=== PATIENT | female | born 1975 | race African-American/Black ===

== ENCOUNTER 2017-03-13 23:25 | Emergency (ER) | payer MEDICAID, MEDICARE ==
--- NOTE | 2017-03-13 23:56 | RAD ---
EXAM: FOUR VIEWS OF THE LEFT KNEE 03/13/17 HISTORY: Pain. COMPARISON: None. FINDINGS: Joint spaces are preserved. No fracture or malalignment. No significant joint effusion. IMPRESSION: Unremarkable four views left knee. POS: [facility]
[2017-03-14] MEDS ORDERED: Ketorolac Tromethamine 30 MG/ML VIAL ONE (00:41)
[2017-03-14] MEDS ORDERED: Ibuprofen 800 MG TAB ONE (00:54)
== END 2017-03-14 01:12 | disposition home or self-care (01) ==
LOC: ERS 23:25
DX: J06.9 Acute upper respiratory infection, unspecified (principal); M25.562 Pain in left knee; E11.9 Type 2 diabetes mellitus without complications; I10 Essential (primary) hypertension; F31.9 Bipolar disorder, unspecified; Z79.899 Other long term (current) drug therapy; Z79.84 Long term (current) use of oral hypoglycemic drugs
CPT/HCPCS: J1885

== ENCOUNTER 2017-10-23 11:56 | Emergency (ER) | payer MEDICARE ==
[2017-10-23] MEDS ORDERED: Metoclopramide HCl 10 MG/2 ML VIAL ONE (12:36)
[2017-10-23] MEDS ORDERED: diphenhydrAMINE 50 MG/ML VIAL ONE (12:36)
[2017-10-23 12:39] LABS: #Eosinphils 0.2 thou/uL (0.0-0.7); #Lymphocytes 2.3 thou/uL (1.20-3.40); #Monocytes 0.2 thou/uL (0.11-0.59); #Neutrophils 2.5 thou/uL (1.40-6.50); %Basophils 0.6 % (0.0-1.0); %Eosinophils 3.9 % (0.0-10.0); %Lymphocytes 43.4 % (21.0-51.0); %Monocytes 4.2 % (0.0-10.0); Hemoglobin 13.6 g/dL (12.0-16.0); Mean Corpuscular HGB CONC 32.9 g/dL (32.0-36.0); Mean Corpuscular Hemoglobin 24.3 pg (27.0-31.0); Mean Corpuscular Volume 73.6 fL (78.0-98.0); Mean Platelet Volume 9.3 fL (7.4-10.4); Platelet Count 258 thou/uL (130-400); RBC Distribution Width 13.1 % (11.5-14.5); White Blood Cell (WBC) Count 5.2 thou/uL (4.8-10.8)
[2017-10-23 12:46] LABS: BHCG - Serum Negative (NEGATIVE); Pregs Control Background? CLEAR/WHITE (CLR/WHITE); Pregs Control Bar Appear? YES (CONTROL BAR)
[2017-10-23 12:55] LABS: Anion Gap 11 mmol/L (10-20); BUN (Urea Nitrogen) 16 mg/dL (7.0-18.7); Calc. Creatinine Clearance 0 mL/min (70-130); Carbon Dioxide 23 mmol/L (22-29); Chloride 105 mmol/L (98-107); Potassium 4.2 mmol/L (3.5-5.1); Sodium 135 mmol/L (136-145)
[2017-10-23 12:56] LABS: ALT (SGPT) 22 U/L (8-55); AST (SGOT) 30 U/L (5-34); Albumin 4.1 g/dL (3.5-5.0); Alkaline Phosphatase 88 U/L (40-150); Bilirubin, Total 0.9 mg/dL (0.2-1.2); Calcium 9.2 mg/dL (7.8-10.44); Estimated GFR-MDRD Greater than 90; Globulin 4.5 g/dL (2.4-3.5); Glucose 185 mg/dL (70-105); Protein, Total 8.6 g/dL (6.0-8.3)
[2017-10-23] MEDS ORDERED: Ketorolac Tromethamine 30 MG/ML VIAL ONE (13:04)
[2017-10-23 13:18] LABS: Hypochromia SLIGHT = 6-15 cells (100X) (0-5/hpf); MDiff Complete? YES; Microcytosis SLIGHT = 6-15 cells (100X) (0-5/hpf); PLT Morphology Comment Appears Adequate; Polychromasia SLIGHT = 2-3 cells (100X) (0-2/hpf)
== END 2017-10-23 14:05 | disposition home or self-care (01) ==
LOC: ERS 11:56
DX: R51 Headache (principal); E11.9 Type 2 diabetes mellitus without complications; I10 Essential (primary) hypertension; F31.9 Bipolar disorder, unspecified
CPT/HCPCS: 80053; 84703; 85025; 96365; 96375; J1200; J1885; J2765

== ENCOUNTER 2017-12-30 18:12 | Emergency (ER) | payer MEDICARE | END 2017-12-30 18:43 | disposition home or self-care (01) | LOC: ERS 18:12 | DX: J01.90 Acute sinusitis, unspecified (principal); E11.9 Type 2 diabetes mellitus without complications; I10 Essential (primary) hypertension; F31.9 Bipolar disorder, unspecified | CPT/HCPCS: 99283 ==

== ENCOUNTER 2018-03-25 07:09 | Observation (INO) | payer MEDICARE ==
--- NOTE | 2018-03-25 08:13 | RAD ---
CHEST 1 VIEW: HISTORY: A 43-year-old female with a history of chest pain with frontal headache and mid sternal chest pain go ing to left shoulder since last night. FINDINGS: Somewhat less than optimal inspiratory effort. Heart size is within normal limits. No confluent pne umonia, overt edema, or pleural effusion. IMPRESSION: Somewhat less than optimal inspiratory effort. No acute intrathoracic disease. No evidence for pneu monia or acute edema. POS: [facility]
[2018-03-25 08:14] LABS: Hemoglobin 12.9 g/dL (12.0-16.0); Mean Corpuscular HGB CONC 31.6 g/dL (32.0-36.0); Mean Corpuscular Hemoglobin 23.5 pg (27.0-31.0); Mean Corpuscular Volume 74.4 fL (78.0-98.0); Mean Platelet Volume 8.6 fL (7.4-10.4); Platelet Count 258 thou/uL (130-400); RBC Distribution Width 12.5 % (11.5-14.5); Red Blood Cell (RBC) Count 5.49 mill/uL (4.20-5.40)
[2018-03-25 08:36] LABS: ALT (SGPT) 23 U/L (8-55); AST (SGOT) 25 U/L (5-34); Albumin 3.9 g/dL (3.5-5.0); Alkaline Phosphatase 84 U/L (40-150); Anion Gap 11 mmol/L (10-20); BUN (Urea Nitrogen) 12 mg/dL (7.0-18.7); Bilirubin, Total 0.7 mg/dL (0.2-1.2); CK (CPK) 153 U/L (29-168); Calc. Creatinine Clearance 0 mL/min (70-130); Calcium 9.3 mg/dL (7.8-10.44); Carbon Dioxide 25 mmol/L (22-29); Chloride 103 mmol/L (98-107); Estimated GFR-MDRD Greater than 90; Globulin 4.5 g/dL (2.4-3.5); Glucose 201 mg/dL (70-105); Lipase 21 U/L (8-78); Potassium 3.7 mmol/L (3.5-5.1); Protein, Total 8.4 g/dL (6.0-8.3); Sodium 135 mmol/L (136-145)
[2018-03-25 08:45] LABS: #Basophils 0.1 thou/uL (0.0-0.2); #Eosinphils 0.1 thou/uL (0.0-0.7); #Lymphocytes 1.9 thou/uL (1.20-3.40); #Monocytes 0.4 thou/uL (0.11-0.59); #Neutrophils 2.6 thou/uL (1.40-6.50); %Basophils 1.4 % (0.0-1.0); %Eosinophils 2.9 % (0.0-10.0); %Lymphocytes 37.4 % (21.0-51.0); %Neutrophils 51.3 % (42.0-75.0); Hypochromia SLIGHT = 6-15 cells (100X) (0-5/hpf); MDiff Complete? YES; Microcytosis SLIGHT = 6-15 cells (100X) (0-5/hpf); PLT Morphology Comment Appears Adequate
[2018-03-25] MEDS ORDERED: Nitroglycerin 0.4 MG TAB (25 Tab Bottle) ONE (08:45)
[2018-03-25] MEDS ORDERED: Nitroglycerin 0.4 MG TAB (25 Tab Bottle) PO PRN (11:05)
[2018-03-25] MEDS ORDERED: Acetaminophen 325 MG TAB PO PRN ×2 (11:05→12:56)
[2018-03-25 11:56] LABS: BHCG - Serum Negative (NEGATIVE); Pregs Control Background? CLEAR/WHITE (CLR/WHITE); Pregs Control Bar Appear? YES (CONTROL BAR)
[2018-03-25 11:57] LABS: Troponin I Less than 0.010 ng/mL (< 0.028)
[2018-03-25] MEDS ORDERED: Dextrose 5% in Water 1,000 ML IV PRN (12:23)
[2018-03-25] MEDS ORDERED: HumaLOG 300 UNITS/3 ML VIAL SC PRN (12:23)
[2018-03-25] MEDS ORDERED: Dextrose 50% Abboject 50 ML SYRINGE SLOW IVP PRN (12:23)
[2018-03-25] MEDS ORDERED: Cyclobenzaprine 10 MG TAB PO SCH (12:30)
[2018-03-25] MEDS ORDERED: Cyclobenzaprine 10 MG TAB PO PRN (12:30)
[2018-03-25] MEDS ORDERED: Ondansetron ODT 4 MG TAB PO PRN (12:56)
[2018-03-25] MEDS ORDERED: Ondansetron PF 4 MG/2 ML Vial IVP PRN (12:56)
--- NOTE | 2018-03-25 13:10 | HP ---
PRIMARY CARE PROVIDER: Tyra Gutierrez MD CHIEF COMPLAINT: Chest pain. HISTORY OF PRESENT ILLNESS: Ms. Conner is a pleasant 43-year-old lady, who was seen at [facility] on March 25, 2018. She reports that she developed left-sided chest pain last night. She describes the pain as throbbing, 7/10 at its worst, radiating down her left arm, accompanied by nausea, headache, dizziness, diaphoresis, and shortness of breath with exertion. She denies any fevers or chills. In terms of the headache, she reports that she has had on and off headaches in the past, but this headache is new. It is frontal, throbbing, nonradiating. REVIEW OF SYSTEMS: All other systems reviewed and found to be negative. PAST MEDICAL HISTORY: Diabetes mellitus type 2 and hypertension. PAST SURGICAL HISTORY: None. PSYCHIATRIC HISTORY: Bipolar disorder. SOCIAL HISTORY: The patient denies tobacco use, alcohol use, or recreational drug use. FAMILY HISTORY: Significant for myocardial infarction in her father in his 50s. ALLERGIES: NO KNOWN DRUG ALLERGIES. CURRENT MEDICATIONS: 1. Depakote 1000 mg daily. 2. Seroquel 100 mg daily. 3. Lisinopril 10 mg daily. 4. Metformin 500 mg two times a day. PHYSICAL EXAMINATION: GENERAL: On examination, Ms. Conner is awake and alert, not in acute distress. She is obese. VITAL SIGNS: Blood pressure is 148/96, pulse 78, respiratory rate 16, oxygen saturation 100% on room air. She is afebrile. EYES: No scleral icterus. No conjunctival pallor. ENT: Moist mucosal membranes. No oropharyngeal erythema or exudates. NECK: Supple, nontender. Trachea is midline. RESPIRATORY: Accessory muscles of breathing are not active. Chest wall movements are symmetric bilaterally. LUNGS: Clear to auscultation without wheeze, rhonchi, or crepitations. CARDIOVASCULAR: S1 and S2 are heard, regular. Peripheral pulses palpable. No carotid bruits. No pericardial rub. ABDOMEN: Soft, nontender. Bowel sounds heard. NEUROLOGIC: Cranial nerves 2 through 12 are intact. Deep tendon reflexes 2+. MUSCULOSKELETAL: Power is 5/5 in all 4 extremities. She is tender over the left chest wall. SKIN: No rashes or subcutaneous nodules. LYMPHATIC: No cervical lymphadenopathy. PSYCHIATRIC: Normal mood. Normal affect. The patient is oriented to person, place, and time. LABS AND INVESTIGATIONS: Ms. Conner's labs and investigations were reviewed. I reviewed her electrocardiogram, which shows normal sinus rhythm, no ST changes to suggest an acute coronary syndrome. I also reviewed her chest x-ray, which does not show any pulmonary infiltrates. She has normal white count, normal hemoglobin, normal platelet count, decreased sodium of 135, elevated globulin of 4.5, elevated serum total protein of 8.4, otherwise unremarkable comprehensive metabolic profile and troponin I that is negative x2. ASSESSMENT AND PLAN: Ms. Conner is a pleasant 43-year-old lady, who was seen at [facility] on March 25, 2018. Her problem list includes: 1. Chest pain: Ms. Conner is presenting with chest pain. She will be admitted to the hospital for further management. We will order stress test. We will monitor on telemetry. At this time, the most likely explanation for her chest pain is that it is of musculoskeletal etiology. We will trial muscle relaxants. 2. Headache: The patient reports new-onset headaches. We will check CT brain to rule out any acute intracranial abnormalities. 3. Hyponatremia: Mild, likely asymptomatic. 4. Diabetes mellitus type 2: We will start Accu-Cheks and insulin sliding scale. 5. Hypertension: We will resume home medications, monitor vital signs, and titrate antihypertensives as needed. Many thanks for allowing me to participate in the patient's care. Please feel free to contact me with any questions or concerns. LEVEL OF RISK: High. LEVEL OF COMPLEXITY: High. Job ID: [id number]
[2018-03-25] MEDS: Nitroglycerin 2% Ointment 1 INCH/1 GM Packet TOP SCH ×2 (14:49→23:24)
[2018-03-25 14:52] VITALS: BMI 38.2
[2018-03-25 15:19] LABS: Troponin I Less than 0.010 ng/mL (< 0.028)
--- NOTE | 2018-03-25 15:34 | CT ---
CT BRAIN NONCONTRAST: HISTORY: A 43-year-old female with new-onset headache. FINDINGS: The ventricles are normal in size and configuration. There is no midline shift or any other mass eff ect. There is no evidence of acute intracranial hemorrhage, large cortical infarct, or extraaxial fl uid collection. The coe matter /white matter differentiation is maintained. The calvarium is intac t. The tympanomastoid cavities, and the upper portions of the paranasal sinuses included in these im ages, are grossly clear. IMPRESSION: Normal. jn [] POS: [facility]
--- NOTE | 2018-03-25 17:10 | NM ---
NUCLEAR MEDICINE CARDIAC STRESS TEST WITH EJECTION FRACTION SINGLE DAY: HISTORY: Chest pain. Hypertension. Diabetes. COMPARISON: None. TECHNIQUE: A stress only test was performed after the intravenous administration of 27 millicuries of technetium 99m sestamibi. The stress EKG was normal. A stress only was performed. There was adequate left ventricular uptake of radiotracer. No abnormal areas of uptake to suggest scar or ischemia. Wall motion is normal. Calculated ejection fraction is 55%. IMPRESSION: Normal nuclear medicine cardiac stress test with ejection fraction. POS: [facility]
--- NOTE | 2018-03-25 22:11 | CT ---
CT PULMONARY ANGIOGRAM WITH IV CONTRAST AND 3D MIP RECONSTRUCTIONS: 03/25/2018 PROVIDED CLINICAL HISTORY: Chest pain. FINDINGS: There is no evidence for central or segmental pulmonary embolus. The heart, pericardium, and great v essels demonstrate an unremarkable CT appearance. The lungs are free of significant opacity. There is no pleural fluid or pneumothorax apparent. The airway appears patent and of normal caliber. Ther e is no evidence for thoracic lymph node enlargement. The visualized portions of the upper abdomen a ppear unremarkable. The osseous structures demonstrate no concerning lytic or blastic lesions. IMPRESSION: No evidence for central or segmental pulmonary embolus. POS: [facility]
[2018-03-26 06:24] LABS: #Eosinphils 0.2 thou/uL (0.0-0.7); #Lymphocytes 1.9 thou/uL (1.20-3.40); #Monocytes 0.3 thou/uL (0.11-0.59); #Neutrophils 1.9 thou/uL (1.40-6.50); %Basophils 0.5 % (0.0-1.0); %Eosinophils 4.1 % (0.0-10.0); %Monocytes 6.8 % (0.0-10.0); %Neutrophils 44.6 % (42.0-75.0); Hemoglobin 12.9 g/dL (12.0-16.0); Mean Corpuscular HGB CONC 31.8 g/dL (32.0-36.0); Mean Corpuscular Hemoglobin 23.7 pg (27.0-31.0); Mean Corpuscular Volume 74.5 fL (78.0-98.0); Mean Platelet Volume 8.7 fL (7.4-10.4); Platelet Count 245 thou/uL (130-400); RBC Distribution Width 12.7 % (11.5-14.5); Red Blood Cell (RBC) Count 5.42 mill/uL (4.20-5.40); White Blood Cell (WBC) Count 4.3 thou/uL (4.8-10.8)
[2018-03-26 06:45] LABS: Anion Gap 14 mmol/L (10-20); BUN (Urea Nitrogen) 11 mg/dL (7.0-18.7); Calc. Creatinine Clearance 166 mL/min (70-130); Calcium 9.3 mg/dL (7.8-10.44); Carbon Dioxide 24 mmol/L (22-29); Chloride 105 mmol/L (98-107); Estimated GFR-MDRD Greater than 90; Glucose 196 mg/dL (70-105); Potassium 3.8 mmol/L (3.5-5.1); Sodium 139 mmol/L (136-145)
[2018-03-26 08:07] VITALS: BP 146/78; TEMP 97.3
[2018-03-26] MEDS ORDERED: Enoxaparin Sodium 40 MG/0.4 ML SYRINGE SC SCH (09:00)
[2018-03-26] MEDS ORDERED: Aspirin 325 MG TAB PO SCH (09:00)
--- NOTE | 2018-03-26 09:00 | PDOC.PN ---
- Objective Vital Signs & Weight: Vital Signs (12 hours) Temp Pulse Resp BP Pulse Ox 03/26/18 07:11 97.3 F L 70 18 146/78 H 98 03/26/18 05:08 98.1 F 76 18 130/79 97 03/25/18 23:54 97.9 F 83 12 130/69 97 Weight Weight 243 lb 14.4 oz I&O: 03/25/18 03/26/18 03/27/18 06:59 06:59 06:59 Intake Total 510 Balance 510 Result Diagrams: 03/26/18 06:10 03/26/18 06:10 Additional Labs: Accuchecks 03/26/18 03/26/18 03/25/18 05:09 00:00 16:43 POC Glucose 209 H 254 H 150 H Dx/Plan - Plan * . Review of Systems - Review of Systems Constitutional: fever, chills, sweats, weakness, malaise, other Eyes: Pain, Vision Change, Conjunctivae Inflammation, Eyelid Inflammation, Redness, Other ENT: Ear Pain, Ear Discharge, Nose Pain, Nose Discharge, Nose Congestion, Mouth Pain, Mouth Swelling, Throat Pain, Throat Swelling, Other Respiratory: Cough, Dry, Shortness of Breath, Hemoptysis, SOB with Excertion, Pleuritic Pain, Sputum, Wheezing Cardiovascular: chest pain, palpitations, orthopnea, paroxysmal nocturnal dyspnea, edema, light headedness, other Gastrointestinal: Nausea, Vomiting, Abdominal Pain, Diarrhea, Constipation, Melena, Hematochezia, Other Genitourinary: Dysuria, Frequency, Incontinence, Hematuria, Retention, Other Musculoskeletal: Neck Pain, Shoulder Pain, Arm Pain, Back Pain, Hand Pain, Leg Pain, Foot Pain, Other Skin: Rash, Lesions, Dennis, Bruising, Other Neurological: Weakness, Numbness, Incoordination, Change in Speech, Confusion, Seizures, Other - Medications/Allergies Allergies/Adverse Reactions: Allergies Allergy/AdvReac Type Severity Reaction Status Date / Time No Known Drug Allergies Allergy Verified 03/25/18 11:05 Medications: Current Medications Acetaminophen (Tylenol) 650 mg PO Q4H PRN PRN Reason: Headache/Fever/Mild Pain (1-3) Aspirin (Aspirin) 325 mg PO DAILY SCOUT Last Admin: 03/26/18 08:32 Dose: 325 mg Cyclobenzaprine HCl (Flexeril) 10 mg PO TID PRN PRN Reason: Muscle Spasm Dextrose/Water (Dextrose 50%) 25 gm SLOW IVP PRN PRN PRN Reason: Hypoglycemia Enoxaparin Sodium (Lovenox) 40 mg SC 0900 [facility] Last Admin: 03/26/18 08:32 Dose: Not Given Glucagon (Glucagon) 1 mg IM PRN PRN PRN Reason: Hypoglycemia Dextrose/Water (D5w) 1,000 mls @ 0 mls/hr IV .Q0M PRN PRN Reason: Hypoglycemia Insulin Human Lispro (Humalog) 0 units SC .MILD SLIDING SCALE PRN PRN Reason: Mild Correctional Scale Nitroglycerin (Nitrostat) 0.4 mg PO Q5MIN PRN PRN Reason: Chest Pain Sodium Chloride (Flush - Normal Saline) 10 ml IVF Q12HR [facility] Last Admin: 03/26/18 08:32 Dose: 10 ml Sodium Chloride (Flush - Normal Saline) 10 ml IVF PRN PRN PRN Reason: Saline Flush
[2018-03-26] MEDS ORDERED: Ibuprofen 200 MG TAB PO PRN (09:12)
[2018-03-26] MEDS ORDERED: Acetaminophen 500 MG TAB PO PRN (09:13)
--- NOTE | 2018-03-26 10:22 | DIS ---
DATE OF ADMISSION: 03/25/2018 DATE OF DISCHARGE: 03/26/2018 PRIMARY CARE PROVIDER: Tyra Gutierrez MD DISCHARGE DIAGNOSES: 1. Chest pain. 2. Most likely musculoskeletal etiology for chest pain. CONDITION OF PATIENT ON THE DAY OF DISCHARGE: Stable. I assessed Ms. Conner on the day of discharge. She denies any headache. She reports chest pain has improved. Vital signs are stable. S1 and S2 are heard, regular. Lungs are clear to auscultation bilaterally. DISCHARGE MEDICATIONS: 1. Acetaminophen 500 mg every 6 hours as needed. 2. Ibuprofen 200 mg every 6 hours as needed. 3. Seroquel 100 mg at bedtime. 4. Metformin 500 mg 2 times a day. 5. Lisinopril 10 mg daily. 6. Divalproex sodium 500 mg 2 times a day. HOSPITAL COURSE: Ms. Conner is a pleasant 43-year-old lady, who was admitted to [facility] on March 25, 2018, for chest pain. Please refer to my history and physical note dated March 25, 2018, for further details. She had nuclear stress test, which was normal. Calculated left ventricular ejection fraction was 55%. She also had a noncontrast CT scan of the brain because of new-onset headaches. The CT scan was normal. She had elevated D-dimer and underwent CT angiogram of the chest, which did not show any evidence for central or segmental pulmonary embolus. She is being discharged home in stable condition. On the day of discharge, she has normal creatinine of 0.77, normal sodium, normal potassium, slightly decreased white count of 4300, normal hemoglobin, and normal platelet count. Many thanks for allowing me to participate in your patient's care. Please feel free to contact me with any questions or concerns. DISCHARGE DESTINATION: Home. Job ID: [id number]
--- NOTE | 2018-03-26 12:28 | EKG ---
Test Reason : Blood Pressure : / mmHG Vent. Rate : 090 BPM Atrial Rate : 090 BPM P-R Int : 106 ms QRS Dur : 086 ms QT Int : 366 ms P-R-T Axes : 047 028 004 degrees QTc Int : 447 ms Sinus rhythm with short IN Nonspecific T wave abnormality Abnormal ECG Confirmed by BRIAN KOHLI MD ([id number]), photographic editor PAN MUNOZ ([id number] on 03/26/2018 12:28:03 PM Referred By: Confirmed By:BRIAN KOHLI MD
--- NOTE | 2018-03-31 12:23 | STRESS ---
Acquisition Time: 2018-03-25 12:28:44 Total Exercise Time: 00:04:00 Test Indications: CHEST PAIN Medications: Protocol: ADENOSINE Max HR: 114 BPM 64% of Pred: 178 BPM Max BP: 136/090 mmHG Max Work Load: 1.0 METS RESTING ECG: NORMAL SINUS RHYTHM AT 78 BPM SYMPTOMS: CHEST PAIN AND DYSPNEA NORMAL BP RESPONSE ECTOPY: NONE ECG STRESS: NO SIGNIFICANT CHANGES INTERPRETATION: AWAIT NUCLEAR IMAGES FOR DEFINITIVE DIAGNOSIS Confirmed by DANY CHO ([id number]), multimedia editor SHERRON AZUL ([id number] on 03/31/2018 12:22:38 PM Referred By: MD Chata DAILEY Confirmed By:DANY CHO
== END 2018-03-26 10:08 | disposition home or self-care (01) ==
LOC: ERS 07:09 → 2SW 13:05
PROVIDERS: ADMIT Internal Medicine; ATTEND Internal Medicine
DX: R07.9 Chest pain, unspecified (principal); I10 Essential (primary) hypertension; E11.9 Type 2 diabetes mellitus without complications; F31.9 Bipolar disorder, unspecified; E87.1 Hypo-osmolality and hyponatremia; R51 Headache; Z79.899 Other long term (current) drug therapy; Z79.84 Long term (current) use of oral hypoglycemic drugs
CPT/HCPCS: 70450; 71045; 71275; 78452; 80048; 80053; 82550; 82962 ×2; 83690; 84484 ×2; 84703; 85025 ×2; 85379; 93005; 93017; 94760 ×3; 99285; A9500; G0378 ×2; 36415; 36416; J1650

== ENCOUNTER 2018-04-06 20:28 | Emergency (ER) | payer MEDICARE ==
[2018-04-06 21:08] LABS: #Eosinphils 0.1 thou/uL (0.0-0.7); #Lymphocytes 2.1 thou/uL (1.20-3.40); #Monocytes 0.4 thou/uL (0.11-0.59); %Basophils 0.8 % (0.0-1.0); %Eosinophils 1.5 % (0.0-10.0); %Lymphocytes 37.1 % (21.0-51.0); %Neutrophils 53.5 % (42.0-75.0); Hemoglobin 12.8 g/dL (12.0-16.0); Mean Corpuscular HGB CONC 32.3 g/dL (32.0-36.0); Mean Corpuscular Hemoglobin 23.7 pg (27.0-31.0); Mean Corpuscular Volume 73.3 fL (78.0-98.0); Mean Platelet Volume 8.2 fL (7.4-10.4); Platelet Count 278 thou/uL (130-400); RBC Distribution Width 12.5 % (11.5-14.5); Red Blood Cell (RBC) Count 5.39 mill/uL (4.20-5.40); White Blood Cell (WBC) Count 5.6 thou/uL (4.8-10.8)
[2018-04-06] MEDS ORDERED: Loperamide HCl 2 MG CAP ONE (21:09)
[2018-04-06] MEDS ORDERED: Acetaminophen 500 MG TAB ONE (21:09)
[2018-04-06 21:11] LABS: Bilirubin Small (Negative); Blood, Urine Negative (Negative); Clarity CLEAR (Clear); Glucose, Urine (Dipstick) Negative (Negative); Leukocyte Negative (Negative); Nitrite Negative (Negative); Protein, Urine (Dipstick) Negative (Neg-Trace); Specific Gravity, Urine 1.028 (1.002-1.036); pH, Urine 5.5 (5.0-9.0)
[2018-04-06 21:12] LABS: Pregnancy Test - Urine (BHCG) Negative (Negative); Pregu Control Background? CLEAR/WHITE (CLR/WHITE); Pregu Control Bar Appear? YES (CONTROL BAR); Specific Gravity 1.028 (1.002-1.036)
[2018-04-06 21:22] LABS: ALT (SGPT) 24 U/L (8-55); AST (SGOT) 25 U/L (5-34); Albumin 4.1 g/dL (3.5-5.0); Alkaline Phosphatase 90 U/L (40-150); Anion Gap 14 mmol/L (10-20); BUN (Urea Nitrogen) 14 mg/dL (7.0-18.7); Bilirubin, Total 0.9 mg/dL (0.2-1.2); Calc. Creatinine Clearance 0 mL/min (70-130); Carbon Dioxide 24 mmol/L (22-29); Chloride 104 mmol/L (98-107); Estimated GFR-MDRD Greater than 90; Globulin 4.5 g/dL (2.4-3.5); Glucose 178 mg/dL (70-105); Lipase 16 U/L (8-78); Potassium 3.5 mmol/L (3.5-5.1); Protein, Total 8.6 g/dL (6.0-8.3); Sodium 138 mmol/L (136-145)
== END 2018-04-06 23:04 | disposition home or self-care (01) ==
LOC: ERS 20:28
DX: R19.7 Diarrhea, unspecified (principal); R11.0 Nausea; I10 Essential (primary) hypertension; R10.819 Abdominal tenderness, unspecified site; E11.9 Type 2 diabetes mellitus without complications; F31.9 Bipolar disorder, unspecified; Z79.84 Long term (current) use of oral hypoglycemic drugs; Z79.899 Other long term (current) drug therapy
CPT/HCPCS: 80053; 81003; 81025; 83690; 85025; 94760; 96360

== ENCOUNTER 2018-05-09 10:04 | Emergency (ER) | payer MEDICARE ==
[2018-05-09] MEDS ORDERED: Fleet Enema 133 ML BOT FS SCH (11:15)
== END 2018-05-09 12:30 | disposition home or self-care (01) ==
LOC: ERS 10:04
DX: K59.00 Constipation, unspecified (principal); E11.9 Type 2 diabetes mellitus without complications; I10 Essential (primary) hypertension; Z79.84 Long term (current) use of oral hypoglycemic drugs; Z79.899 Other long term (current) drug therapy
CPT/HCPCS: 99283

== ENCOUNTER 2018-07-20 15:29 | Emergency (ER) | payer MEDICARE ==
[2018-07-20] MEDS ORDERED: Ketorolac Tromethamine 30 MG/ML VIAL ONE (16:41)
[2018-07-20 17:00] LABS: Hemoglobin 13.9 g/dL (12.0-16.0); Mean Corpuscular HGB CONC 31.7 g/dL (32.0-36.0); Mean Corpuscular Hemoglobin 23.2 pg (27.0-31.0); Mean Corpuscular Volume 73.1 fL (78.0-98.0); Mean Platelet Volume 8.4 fL (7.4-10.4); Platelet Count 293 thou/uL (130-400); RBC Distribution Width 12.6 % (11.5-14.5); Red Blood Cell (RBC) Count 5.99 mill/uL (4.20-5.40); White Blood Cell (WBC) Count 4.8 thou/uL (4.8-10.8)
[2018-07-20 17:20] LABS: #Eosinphils 0.1 thou/uL (0.0-0.7); #Lymphocytes 1.8 thou/uL (1.20-3.40); #Monocytes 0.3 thou/uL (0.11-0.59); #Neutrophils 2.7 thou/uL (1.40-6.50); %Basophils 0.8 % (0.0-1.0); %Eosinophils 1.6 % (0.0-10.0); %Lymphocytes 36.8 % (21.0-51.0); %Monocytes 5.5 % (0.0-10.0); %Neutrophils 55.3 % (42.0-75.0); Hypochromia SLIGHT = 6-15 cells (100X) (0-5/hpf); MDiff Complete? YES; Microcytosis SLIGHT = 6-15 cells (100X) (0-5/hpf); Platelet Morphology Comment Appears Adequate
[2018-07-20 17:28] LABS: ALT (SGPT) 33 U/L (8-55); AST (SGOT) 44 U/L (5-34); Albumin 4.1 g/dL (3.5-5.0); Alkaline Phosphatase 118 U/L (40-150); Anion Gap 14 mmol/L (10-20); BUN (Urea Nitrogen) 11 mg/dL (7.0-18.7); Bilirubin, Total 0.6 mg/dL (0.2-1.2); CK (CPK) 49 U/L (29-168); Calc. Creatinine Clearance 0 mL/min (70-130); Calcium 9.7 mg/dL (7.8-10.44); Carbon Dioxide 29 mmol/L (22-29); Chloride 99 mmol/L (98-107); Estimated GFR-MDRD Greater than 90; Glucose 179 mg/dL (70-105); Potassium 4.8 mmol/L (3.5-5.1); Protein, Total 9.1 g/dL (6.0-8.3); Sodium 137 mmol/L (136-145)
[2018-07-20 18:34] LABS: Bilirubin Negative (Negative); Blood, Urine Negative (Negative); Clarity CLEAR (Clear); Glucose, Urine (Dipstick) Negative (Negative); Leukocyte Negative (Negative); Nitrite Negative (Negative); Protein, Urine (Dipstick) Negative (Neg-Trace); Specific Gravity, Urine 1.008 (1.002-1.036)
[2018-07-20 18:36] LABS: Pregnancy Test - Urine (BHCG) Negative (Negative); Pregu Control Background? CLEAR/WHITE (CLR/WHITE); Pregu Control Bar Appear? YES (CONTROL BAR); Specific Gravity 1.008 (1.002-1.036)
[2018-07-20] MEDS ORDERED: Acetaminophen 500 MG TAB ONE (19:51)
== END 2018-07-20 19:57 | disposition home or self-care (01) ==
LOC: ERS 15:29
DX: E11.9 Type 2 diabetes mellitus without complications (principal); I10 Essential (primary) hypertension; F31.9 Bipolar disorder, unspecified; Z79.84 Long term (current) use of oral hypoglycemic drugs; Z79.899 Other long term (current) drug therapy
CPT/HCPCS: 80053; 81003; 81025; 82550; 85025; 96361; 96374; J1885

== ENCOUNTER 2018-07-29 17:53 | Emergency (ER) | payer MEDICARE | END 2018-07-29 18:48 | disposition left against medical advice (07) | LOC: ERS 17:53 | DX: Z53.21 Procedure and treatment not carried out due to patient leaving prior to being seen by health care provider (principal) ==

== ENCOUNTER 2018-07-30 15:12 | Emergency (ER) | payer MEDICARE ==
[2018-07-30] MEDS ORDERED: Naproxen 500 MG TAB ONE (18:49)
[2018-07-30] MEDS ORDERED: predniSONE 20 MG TAB ONE ×2 (18:49→18:50)
== END 2018-07-30 19:06 | disposition home or self-care (01) ==
LOC: ERS 15:12
DX: M19.90 Unspecified osteoarthritis, unspecified site (principal); I10 Essential (primary) hypertension; E11.9 Type 2 diabetes mellitus without complications; F31.9 Bipolar disorder, unspecified; F20.9 Schizophrenia, unspecified
CPT/HCPCS: 99283; J7512

== ENCOUNTER 2018-12-02 00:26 | Emergency (ER) | payer MEDICARE ==
[2018-12-02] MEDS ORDERED: diphenhydrAMINE 50 MG/ML VIAL ONE (00:58)
[2018-12-02] MEDS ORDERED: Ketorolac Tromethamine 30 MG/ML VIAL ONE (00:58)
[2018-12-02] MEDS ORDERED: Prochlorperazine 10 MG/2 ML VIAL IVP SCH (01:15)
== END 2018-12-02 02:05 | disposition home or self-care (01) ==
LOC: ERS 00:26
DX: R51 Headache (principal); I10 Essential (primary) hypertension; E11.9 Type 2 diabetes mellitus without complications; F31.9 Bipolar disorder, unspecified; F20.9 Schizophrenia, unspecified
CPT/HCPCS: 93005; 96361; 96374; 96375; J0780; J1200; J1885

== ENCOUNTER 2018-12-18 20:58 | Emergency (ER) | payer MEDICARE ==
[2018-12-18] MEDS ORDERED: Acetaminophen 500 MG TAB ONE (21:36)
[2018-12-18] MEDS ORDERED: Lidocaine 2% 10 ML INJ ONE (21:42)
[2018-12-18] MEDS ORDERED: Lidocaine 1% (PF) 30 ML VIAL ONE (21:42)
[2018-12-18 21:43] LABS: Bilirubin Negative (Negative); Blood, Urine Negative (Negative); Clarity Clear (Clear); Glucose, Urine (Dipstick) Greater than 1000 mg/dL (Negative); Leukocyte Negative Leu/uL (Negative); Nitrite Negative (Negative); Protein, Urine (Dipstick) Negative (Neg-Trace); Urobilinogen Normal mg/dL (Less than 2)
[2018-12-18 21:45] LABS: Pregnancy Test - Urine (BHCG) Negative (Negative); Pregu Control Background? CLEAR/WHITE (CLR/WHITE); Pregu Control Bar Appear? YES (CONTROL BAR)
[2018-12-21 01:07] LABS: Chlamydia by PCR Not Detected (NotDetected); GC by PCR Not Detected (NotDetected)
== END 2018-12-18 22:04 | disposition home or self-care (01) ==
LOC: ERS 20:58
DX: L02.415 Cutaneous abscess of right lower limb (principal); N89.8 Other specified noninflammatory disorders of vagina; E11.9 Type 2 diabetes mellitus without complications; F41.9 Anxiety disorder, unspecified; F20.9 Schizophrenia, unspecified; F31.9 Bipolar disorder, unspecified; Z79.899 Other long term (current) drug therapy; Z79.84 Long term (current) use of oral hypoglycemic drugs
CPT/HCPCS: 81003; 81025; 87252; 87480; 87491; 87510; 87591; 87660; 99283; J2001

== ENCOUNTER 2019-04-05 21:41 | Emergency (ER) | payer MEDICARE | END 2019-04-05 22:25 | disposition home or self-care (01) | LOC: ERS 21:41 | DX: J06.9 Acute upper respiratory infection, unspecified (principal); L29.2 Pruritus vulvae; F41.9 Anxiety disorder, unspecified; F31.9 Bipolar disorder, unspecified; E11.9 Type 2 diabetes mellitus without complications; Z79.84 Long term (current) use of oral hypoglycemic drugs; Z79.899 Other long term (current) drug therapy | CPT/HCPCS: 99283 ==

== ENCOUNTER 2019-08-07 20:55 | Emergency (ER) | payer MEDICAID, MEDICARE ==
[2019-08-07] MEDS ORDERED: Dexamethasone 4 mg/ml Vial ONE (21:22)
[2019-08-07] MEDS ORDERED: Metoclopramide HCl 10 MG/2 ML VIAL ONE (21:23)
[2019-08-07] MEDS ORDERED: Ketorolac Tromethamine 30 MG/ML VIAL ONE (21:23)
== END 2019-08-07 22:41 | disposition home or self-care (01) ==
LOC: ERS 20:55
DX: G43.909 Migraine, unspecified, not intractable, without status migrainosus (principal); E11.9 Type 2 diabetes mellitus without complications; F41.9 Anxiety disorder, unspecified; F31.9 Bipolar disorder, unspecified; I10 Essential (primary) hypertension; F20.9 Schizophrenia, unspecified; Z79.899 Other long term (current) drug therapy; Z79.84 Long term (current) use of oral hypoglycemic drugs
CPT/HCPCS: 96365; 96375; J1100; J1885; J2765

== ENCOUNTER 2019-08-24 03:44 | Emergency (ER) | payer MEDICARE ==
[2019-08-24] MEDS ORDERED: Ketorolac Tromethamine 30 MG/ML VIAL ONE (03:58)
[2019-08-24] MEDS ORDERED: HYDROcodone/Acetaminophen 5/325 mg Tablet ONE (04:03)
[2019-08-24 04:14] LABS: Bilirubin Negative (Negative); Blood, Urine Negative (Negative); Clarity Clear (Clear); Glucose, Urine (Dipstick) Normal (Negative); Leukocyte Negative Leu/uL (Negative); Nitrite Negative (Negative); Protein, Urine (Dipstick) Negative (Neg-Trace); Urobilinogen Normal mg/dL (Less than 2)
[2019-08-24 04:37] LABS: Pregnancy Test - Urine (BHCG) Negative (Negative); Pregu Control Background? CLEAR/WHITE (CLR/WHITE); Pregu Control Bar Appear? YES (CONTROL BAR); Specific Gravity 1.019 (1.002-1.036)
== END 2019-08-24 04:47 | disposition home or self-care (01) ==
LOC: ERS 03:44
DX: R10.9 Unspecified abdominal pain (principal); F41.9 Anxiety disorder, unspecified; F31.9 Bipolar disorder, unspecified; E11.9 Type 2 diabetes mellitus without complications; I10 Essential (primary) hypertension; Z79.899 Other long term (current) drug therapy
CPT/HCPCS: 81003; 81025; 87077; 87086; 99284; J1885

== ENCOUNTER 2019-08-29 19:00 | Emergency (ER) | payer MEDICARE ==
[2019-08-29 19:34] LABS: Bilirubin Negative (Negative); Blood, Urine 3+ (Negative); Clarity Extra Turbid (Clear); Glucose, Urine (Dipstick) Normal (Negative); Leukocyte 25 Leu/uL (Negative); Nitrite Negative (Negative); Protein, Urine (Dipstick) 200 mg/dL (Neg-Trace); RBC/HPF Greater than 50 HPF (0-3); Squamous Epithelial None Seen HPF (0-3); WBC/HPF 0-3 HPF (0-3)
[2019-08-29 19:36] LABS: Bacteria/HPF 1+ HPF (None Seen)
[2019-08-29 19:38] LABS: #Basophils 0.1 thou/uL (0.0-0.2); #Eosinphils 0.1 thou/uL (0.0-0.7); #Lymphocytes 2.6 thou/uL (1.20-3.40); #Monocytes 0.4 thou/uL (0.11-0.59); #Neutrophils 3.2 thou/uL (1.40-6.50); %Basophils 1.2 % (0.0-1.0); %Eosinophils 2.3 % (0.0-10.0); %Monocytes 6.1 % (0.0-10.0); %Neutrophils 49.5 % (42.0-75.0); Hemoglobin 11.6 g/dL (12.0-16.0); Mean Corpuscular HGB CONC 31.2 g/dL (32.0-36.0); Mean Corpuscular Hemoglobin 23.8 pg (27.0-31.0); Mean Corpuscular Volume 76.2 fL (78.0-98.0); Mean Platelet Volume 8.1 fL (7.4-10.4); Platelet Count 252 thou/uL (130-400); RBC Distribution Width 12.4 % (11.5-14.5); Red Blood Cell (RBC) Count 4.86 mill/uL (4.20-5.40); White Blood Cell (WBC) Count 6.4 thou/uL (4.8-10.8)
[2019-08-29 19:58] LABS: ALT (SGPT) 14 U/L (8-55); AST (SGOT) 16 U/L (5-34); Albumin 3.8 g/dL (3.5-5.0); Alkaline Phosphatase 81 U/L (40-110); Anion Gap 12 mmol/L (10-20); BUN (Urea Nitrogen) 12 mg/dL (7.0-18.7); Bilirubin, Total 0.8 mg/dL (0.2-1.2); Calc. Creatinine Clearance 0 mL/min (70-130); Calcium 8.8 mg/dL (7.8-10.44); Carbon Dioxide 25 mmol/L (22-29); Chloride 104 mmol/L (98-107); Estimated GFR-MDRD Greater than 90; Glucose 189 mg/dL (70-105); Potassium 3.5 mmol/L (3.5-5.1); Protein, Total 7.8 g/dL (6.0-8.3); Sodium 137 mmol/L (136-145)
[2019-08-29 20:03] LABS: BHCG - Serum Negative (NEGATIVE); Pregs Control Background? CLEAR/WHITE (CLR/WHITE); Pregs Control Bar Appear? YES (CONTROL BAR)
--- NOTE | 2019-08-29 21:58 | ULT ---
ULTRASOUND PELVIC COMPLETE: Date: 08/29/2019 HISTORY: Pain. COMPARISON: None. FINDINGS: Real-time Hughes scale and color with spectral analysis of the pelvis was performed transabdominal and transvaginal approach. FINDINGS: Uterus is normal. The endometrium is normal measuring 7.0 mm. In the right adnexa is a large cyst with what appears to be retracting clot suggesting a hemorrhagic cyst. This measures up to 5.6 cm in size. There is adequate vascular flow to the right ovary. Left ov joie is normal with adequate vascular flow. No free fluid. IMPRESSION: Findings of a large right-sided hemorrhagic cyst. Follow-up ultrasound in 6 weeks recommended to docu ment resolution. POS: HOME
== END 2019-08-29 21:55 | disposition home or self-care (01) ==
LOC: ERS 19:00
DX: N83.201 Unspecified ovarian cyst, right side (principal); E11.9 Type 2 diabetes mellitus without complications; I10 Essential (primary) hypertension; F41.9 Anxiety disorder, unspecified; F32.9 Major depressive disorder, single episode, unspecified; F20.9 Schizophrenia, unspecified; Z79.84 Long term (current) use of oral hypoglycemic drugs; Z79.899 Other long term (current) drug therapy
CPT/HCPCS: 36415; 76856; 80053; 81003; 81015; 84703; 85025; 87077; 87086

== ENCOUNTER 2020-02-02 15:19 | Emergency (ER) | payer MEDICARE, OTHER ==
[2020-02-03 11:08] LABS: SARS-CoV-2 MS2 Positive; SARS-CoV-2 N Gene Negative; SARS-CoV-2 S Gene Negative; SARS-CoV-2 by NAA Not Detected (NotDetected); SARS-CoV-2 orf1ab Negative
== END 2020-02-02 17:02 | disposition home or self-care (01) ==
LOC: ERS 15:19
DX: J06.9 Acute upper respiratory infection, unspecified (principal); Z20.828 Contact with and (suspected) exposure to other viral communicable diseases; E11.9 Type 2 diabetes mellitus without complications; F41.9 Anxiety disorder, unspecified; F31.9 Bipolar disorder, unspecified; F20.9 Schizophrenia, unspecified; Z79.84 Long term (current) use of oral hypoglycemic drugs; Z79.899 Other long term (current) drug therapy
CPT/HCPCS: 87635; 99283; U0003

== ENCOUNTER 2020-06-04 18:21 | Emergency (ER) | payer MEDICARE ==
[2020-06-04 19:14] LABS: Bacteria/HPF None Seen HPF (None Seen); Bilirubin Negative (Negative); Blood, Urine 3+ (Negative); Clarity Clear (Clear); Glucose, Urine (Dipstick) Greater than 1000 mg/dL (Negative); Ketone, Urine Trace mg/dL (Negative); Leukocyte Negative Leu/uL (Negative); Nitrite Negative (Negative); Pregnancy Test - Urine (BHCG) Negative (Negative); Pregu Control Background? CLEAR/WHITE (CLR/WHITE); Pregu Control Bar Appear? YES (CONTROL BAR); Protein, Urine (Dipstick) Negative (Neg-Trace); RBC/HPF Greater than 50 HPF (0-3); Specific Gravity 1.022 (1.002-1.036); Specific Gravity, Urine 1.022 (1.002-1.036); Squamous Epithelial 0-3 HPF (0-3); WBC/HPF 0-3 HPF (0-3); pH, Urine 5.5 (5.0-9.0)
[2020-06-04 19:18] LABS: #Basophils 0.1 thou/uL (0.0-0.2); #Eosinphils 0.2 thou/uL (0.0-0.7); #Lymphocytes 2.5 thou/uL (1.20-3.40); #Monocytes 0.4 thou/uL (0.11-0.59); %Basophils 1.1 % (0.0-1.0); %Eosinophils 2.2 % (0.0-10.0); %Lymphocytes 30.9 % (21.0-51.0); %Monocytes 4.6 % (0.0-10.0); %Neutrophils 61.1 % (42.0-75.0); Hemoglobin 12.5 g/dL (12.0-16.0); Mean Corpuscular HGB CONC 32.3 g/dL (32.0-36.0); Mean Corpuscular Hemoglobin 23.8 pg (27.0-31.0); Mean Corpuscular Volume 73.9 fL (78.0-98.0); Mean Platelet Volume 8.4 fL (7.4-10.4); Platelet Count 228 thou/uL (130-400); RBC Distribution Width 12.5 % (11.5-14.5); Red Blood Cell (RBC) Count 5.23 mill/uL (4.20-5.40); White Blood Cell (WBC) Count 8.2 thou/uL (4.8-10.8)
[2020-06-04 19:40] LABS: MDiff Complete? YES; Microcytosis SLIGHT = 6-15 cells (100X) (0-5/hpf)
[2020-06-04] MEDS ORDERED: Ketorolac Tromethamine 30 MG/ML VIAL ONE (20:08)
[2020-06-04] MEDS ORDERED: Ibuprofen 800 MG TAB ONE (20:19)
[2020-06-06 20:17] LABS: Chlamydia by PCR Not Detected (NotDetected); GC by PCR Not Detected (NotDetected)
== END 2020-06-04 21:17 | disposition home or self-care (01) ==
LOC: ERS 18:21
DX: N76.0 Acute vaginitis (principal); B96.89 Other specified bacterial agents as the cause of diseases classified elsewhere; I10 Essential (primary) hypertension; E11.9 Type 2 diabetes mellitus without complications; Z79.84 Long term (current) use of oral hypoglycemic drugs; Z79.899 Other long term (current) drug therapy
CPT/HCPCS: 36415; 81003; 81015; 81025; 84702; 85025; 86900; 86901; 87480; 87491; 87510; 87591; 87660; 99284; J1885

== ENCOUNTER 2020-08-29 09:38 | Emergency (ER) | payer MEDICARE, MEDICAID ==
[2020-08-29] MEDS ORDERED: Acetaminophen 500 MG TAB ONE (10:50)
[2020-08-29 11:00] LABS: Hemoglobin 12.6 g/dL (12.0-16.0); Mean Corpuscular HGB CONC 32.2 g/dL (32.0-36.0); Mean Corpuscular Hemoglobin 24.1 pg (27.0-31.0); Mean Corpuscular Volume 74.8 fL (78.0-98.0); Mean Platelet Volume 7.9 fL (7.4-10.4); Platelet Count 287 thou/uL (130-400); RBC Distribution Width 12.1 % (11.5-14.5); Red Blood Cell (RBC) Count 5.23 mill/uL (4.20-5.40); White Blood Cell (WBC) Count 4.9 thou/uL (4.8-10.8)
[2020-08-29 11:16] LABS: BHCG - Serum Negative (NEGATIVE); Pregs Control Background? CLEAR/WHITE (CLR/WHITE); Pregs Control Bar Appear? YES (CONTROL BAR)
[2020-08-29 11:21] LABS: #Eosinphils 0.2 thou/uL (0.0-0.7); #Monocytes 0.3 thou/uL (0.11-0.59); #Neutrophils 2.3 thou/uL (1.40-6.50); %Basophils 0.7 % (0.0-1.0); %Eosinophils 4.2 % (0.0-10.0); %Lymphocytes 40.8 % (21.0-51.0); %Monocytes 6.9 % (0.0-10.0); %Neutrophils 47.3 % (42.0-75.0); MDiff Complete? YES; Microcytosis SLIGHT = 6-15 cells (100X) (0-5/hpf); Platelet Morphology Comment Appears Adequate
[2020-08-29 11:22] LABS: ALT (SGPT) 20 U/L (8-55); AST (SGOT) 20 U/L (5-34); Albumin 3.7 g/dL (3.5-5.0); Alkaline Phosphatase 107 U/L (40-110); Anion Gap 10 mmol/L (10-20); BUN (Urea Nitrogen) 11 mg/dL (7.0-18.7); Bilirubin, Total 0.6 mg/dL (0.2-1.2); Calc. Creatinine Clearance 0 mL/min (70-130); Calcium 9.3 mg/dL (7.8-10.44); Carbon Dioxide 29 mmol/L (22-29); Chloride 103 mmol/L (98-107); Globulin 4.2 g/dL (2.4-3.5); Glucose 226 mg/dL (70-105); Potassium 4.2 mmol/L (3.5-5.1); Protein, Total 7.9 g/dL (6.0-8.3); Sodium 138 mmol/L (136-145)
== END 2020-08-29 12:10 | disposition home or self-care (01) ==
LOC: ERS 09:38
DX: S00.03XA Contusion of scalp, initial encounter (principal); R55 Syncope and collapse; I10 Essential (primary) hypertension; E11.9 Type 2 diabetes mellitus without complications; W19.XXXA Unspecified fall, initial encounter
CPT/HCPCS: 36415; 70450; 80053; 84484; 84703; 85025; 93005

== ENCOUNTER 2020-10-26 19:39 | Emergency (ER) | payer MEDICARE, MEDICAID ==
[2020-10-26 20:51] LABS: #Basophils 0.1 thou/uL (0.0-0.2); #Eosinphils 0.2 thou/uL (0.0-0.7); #Lymphocytes 3.3 thou/uL (1.20-3.40); #Monocytes 0.4 thou/uL (0.11-0.59); #Neutrophils 3.9 thou/uL (1.40-6.50); %Eosinophils 2.5 % (0.0-10.0); %Lymphocytes 41.5 % (21.0-51.0); %Monocytes 5.3 % (0.0-10.0); %Neutrophils 49.7 % (42.0-75.0); Hemoglobin 12.1 g/dL (12.0-16.0); Mean Corpuscular HGB CONC 32.1 g/dL (32.0-36.0); Mean Corpuscular Hemoglobin 24.5 pg (27.0-31.0); Mean Corpuscular Volume 76.2 fL (78.0-98.0); Mean Platelet Volume 8.2 fL (7.4-10.4); Platelet Count 271 thou/uL (130-400); RBC Distribution Width 12.5 % (11.5-14.5); Red Blood Cell (RBC) Count 4.95 mill/uL (4.20-5.40); White Blood Cell (WBC) Count 7.8 thou/uL (4.8-10.8)
[2020-10-26 21:13] LABS: ALT (SGPT) 11 U/L (8-55); AST (SGOT) 16 U/L (5-34); Alkaline Phosphatase 81 U/L (40-110); Anion Gap 9 mmol/L (10-20); BUN (Urea Nitrogen) 14 mg/dL (7.0-18.7); Bilirubin, Total 0.7 mg/dL (0.2-1.2); Calc. Creatinine Clearance 0 mL/min (70-130); Calcium 9.2 mg/dL (7.8-10.44); Carbon Dioxide 31 mmol/L (22-29); Chloride 103 mmol/L (98-107); Glucose 198 mg/dL (70-105); Sodium 139 mmol/L (136-145)
[2020-10-26] MEDS ORDERED: Ketorolac Tromethamine 30 MG/ML VIAL ONE (21:50)
[2020-10-26] MEDS ORDERED: Ondansetron PF 4 MG/2 ML Vial ONE (21:50)
[2020-10-26] MEDS ORDERED: Meclizine HCl 25 MG TAB ONE (21:50)
[2020-10-26 23:16] LABS: BHCG - Serum Negative (NEGATIVE); Pregs Control Background? CLEAR/WHITE (CLR/WHITE); Pregs Control Bar Appear? YES (CONTROL BAR)
== END 2020-10-27 00:53 | disposition home or self-care (01) ==
LOC: ERS 19:39
DX: R55 Syncope and collapse (principal); N93.9 Abnormal uterine and vaginal bleeding, unspecified; R42 Dizziness and giddiness; E11.9 Type 2 diabetes mellitus without complications; Z79.84 Long term (current) use of oral hypoglycemic drugs; Z79.899 Other long term (current) drug therapy
CPT/HCPCS: 36415; 71045; 76856; 80053; 84484; 84703; 85025; 93005; 96374; 96375; J1885; J2405

== ENCOUNTER 2021-01-16 00:08 | Emergency (ER) | payer MEDICARE, MEDICAID | END 2021-01-16 03:05 | disposition home or self-care (01) | LOC: ERS 00:08 | DX: B34.9 Viral infection, unspecified (principal); E11.9 Type 2 diabetes mellitus without complications | CPT/HCPCS: 99283 ==

== ENCOUNTER 2021-01-20 13:13 | Emergency (ER) | payer MEDICARE, MEDICAID ==
[2021-01-20] MEDS ORDERED: Ibuprofen 200 MG TAB ONE (14:56)
== END 2021-01-20 15:11 | disposition home or self-care (01) ==
LOC: ERS 13:13
DX: M54.50 Low back pain, unspecified (principal); E11.9 Type 2 diabetes mellitus without complications; I10 Essential (primary) hypertension
CPT/HCPCS: 99283

== ENCOUNTER 2021-01-28 13:33 | Emergency (ER) | payer MEDICARE, MEDICAID ==
[2021-01-28] MEDS ORDERED: diphenhydrAMINE 50 MG/ML VIAL ONE (16:53)
[2021-01-28] MEDS ORDERED: cloNIDine 0.1 MG TAB ONE (16:53)
[2021-01-28] MEDS ORDERED: Prochlorperazine Edisylate 10 MG in Sodium Chloride 0.9% 50 ML IVPB SCH (17:15)
== END 2021-01-28 18:46 | disposition home or self-care (01) ==
LOC: ERS 13:33
DX: R51.9 Headache, unspecified (principal); I10 Essential (primary) hypertension; E11.9 Type 2 diabetes mellitus without complications; Z79.84 Long term (current) use of oral hypoglycemic drugs; Z79.899 Other long term (current) drug therapy
CPT/HCPCS: 36416; 70450; 96365; 96375; J0780; J1200

== ENCOUNTER 2021-05-14 09:55 | Emergency (ER) | payer MEDICARE, MEDICAID | END 2021-05-14 11:47 | disposition home or self-care (01) | LOC: ERS 09:55 | DX: S40.012A Contusion of left shoulder, initial encounter (principal); S70.02XA Contusion of left hip, initial encounter; I10 Essential (primary) hypertension; E11.9 Type 2 diabetes mellitus without complications; Z79.899 Other long term (current) drug therapy; Z79.84 Long term (current) use of oral hypoglycemic drugs; W19.XXXA Unspecified fall, initial encounter ==

== ENCOUNTER 2021-10-13 05:32 | Emergency (ER) | payer MEDICARE | END 2021-10-13 07:05 | disposition home or self-care (01) | LOC: ERS 05:32 | DX: U07.1 COVID-19 (principal); E11.9 Type 2 diabetes mellitus without complications; I10 Essential (primary) hypertension | CPT/HCPCS: 99283; U0003; U0005 ==

== ENCOUNTER 2022-04-12 15:00 | Outpatient (CLI) | payer MEDICARE, MEDICAID | END 2022-04-12 15:01 | disposition home or self-care (01) | LOC: BICRAD 15:00 | PROVIDERS: ATTEND Nurse Practitioner Family | DX: K59.01 Slow transit constipation (principal); R19.5 Other fecal abnormalities | CPT/HCPCS: 74019 ==

== ENCOUNTER 2022-04-16 03:28 | Emergency (ER) | payer MEDICARE, MEDICAID ==
[2022-04-16 04:33] LABS: #Eosinphils 0.2 thou/uL (0.0-0.7); #Lymphocytes 3.2 thou/uL (1.20-3.40); #Monocytes 0.4 thou/uL (0.11-0.59); #Neutrophils 4.6 thou/uL (1.40-6.50); %Basophils 0.3 % (0.0-1.0); %Eosinophils 2.6 % (0.0-10.0); %Lymphocytes 38.2 % (21.0-51.0); %Monocytes 4.8 % (0.0-10.0); %Neutrophils 54.1 % (42.0-75.0); Hemoglobin 13.1 g/dL (12.0-16.0); Mean Corpuscular HGB CONC 31.8 g/dL (32.0-36.0); Mean Corpuscular Hemoglobin 23.6 pg (27.0-31.0); Mean Corpuscular Volume 74.4 fl (78.0-98.0); Mean Platelet Volume 8.5 fL (7.4-10.4); Platelet Count 281 10x3/uL (130-400); RBC Distribution Width 12.3 % (11.5-14.5); Red Blood Cell (RBC) Count 5.55 mill/uL (4.20-5.40); White Blood Cell (WBC) Count 8.4 10x3/uL (4.8-10.8)
[2022-04-16 04:44] LABS: ALT (SGPT) 16 U/L (8-55); AST (SGOT) 17 U/L (5-34); Albumin 3.9 g/dL (3.5-5.0); Alkaline Phosphatase 95 U/L (40-110); Anion Gap 13 mmol/L (10-20); BUN (Urea Nitrogen) 10 mg/dL (7.0-18.7); Bilirubin, Total 0.4 mg/dL (0.2-1.2); Calc. Creatinine Clearance 0 mL/min (70-130); Calcium 8.8 mg/dL (7.8-10.44); Carbon Dioxide 24 mmol/L (22-29); Chloride 101 mmol/L (98-107); Estimated GFR 88; Globulin 4.1 g/dL (2.4-3.5); Glucose 369 mg/dL (70-105); Potassium 3.6 mmol/L (3.5-5.1); Sodium 134 mmol/L (136-145)
[2022-04-16] MEDS ORDERED: Ondansetron PF 4 MG/2 ML Vial ONE (05:15)
[2022-04-16] MEDS ORDERED: Ketorolac Tromethamine 30 MG/ML VIAL ONE (05:15)
[2022-04-16] MEDS ORDERED: Morphine 4 MG/ML VIAL ONE (05:15)
[2022-04-16 05:46] LABS: Bilirubin Negative (Negative); Blood, Urine Negative (Negative); Clarity Clear (Clear); Glucose, Urine (Dipstick) Greater than 1000 mg/dL (Negative); Ketone, Urine Negative (Negative); Leukocyte Negative Leu/uL (Negative); Nitrite Negative (Negative); Protein, Urine (Dipstick) Negative (Neg-Trace); Specific Gravity, Urine 1.026 (1.002-1.036); Urobilinogen Normal mg/dL (Less than 2); pH, Urine 5.5 (5.0-9.0)
[2022-04-16 06:14] LABS: Specific Gravity 1.026 (1.002-1.036)
[2022-04-16 06:15] LABS: Pregnancy Test - Urine (BHCG) Negative (Negative); Pregu Control Background? CLEAR/WHITE (CLR/WHITE); Pregu Control Bar Appear? YES (CONTROL BAR)
[2022-04-16] MEDS ORDERED: Iopamidol-370 76% 500 ML 1 ML ONE (08:35)
== END 2022-04-16 07:55 | disposition home or self-care (01) ==
LOC: ERS 03:28
DX: R07.89 Other chest pain (principal); I10 Essential (primary) hypertension; E11.9 Type 2 diabetes mellitus without complications
CPT/HCPCS: 36415; 71045; 74177; 80053; 81003; 81025; 83690; 84484; 85025; 93005; 96374; 96375; J1885; J2270; J2405; Q9967

== ENCOUNTER 2022-04-17 10:05 | Outpatient (CLI) | payer MEDICARE, MEDICAID | END 2022-04-17 10:06 | disposition home or self-care (01) | LOC: BICMAMMO 10:05 | PROVIDERS: ATTEND Nurse Practitioner Family | DX: N63.13 Unspecified lump in the right breast, lower outer quadrant (principal) | CPT/HCPCS: 76642; 77066; G0279 ==

== ENCOUNTER 2022-04-19 21:01 | Emergency (ER) | payer MEDICARE, MEDICAID ==
[2022-04-19 22:11] LABS: #Eosinphils 0.3 thou/uL (0.0-0.7); #Lymphocytes 3.4 thou/uL (1.20-3.40); #Monocytes 0.3 thou/uL (0.11-0.59); #Neutrophils 3.9 thou/uL (1.40-6.50); %Basophils 0.4 % (0.0-1.0); %Lymphocytes 42.8 % (21.0-51.0); %Monocytes 4.1 % (0.0-10.0); %Neutrophils 48.7 % (42.0-75.0); Hemoglobin 13.1 g/dL (12.0-16.0); Mean Corpuscular HGB CONC 31.9 g/dL (32.0-36.0); Mean Corpuscular Hemoglobin 23.7 pg (27.0-31.0); Mean Corpuscular Volume 74.1 fl (78.0-98.0); Mean Platelet Volume 8.2 fL (7.4-10.4); Platelet Count 282 10x3/uL (130-400); RBC Distribution Width 12.1 % (11.5-14.5); Red Blood Cell (RBC) Count 5.55 mill/uL (4.20-5.40)
[2022-04-19 22:27] LABS: ALT (SGPT) 13 U/L (8-55); AST (SGOT) 16 U/L (5-34); Albumin 4.1 g/dL (3.5-5.0); Alkaline Phosphatase 95 U/L (40-110); Anion Gap 10 mmol/L (10-20); BUN (Urea Nitrogen) 10 mg/dL (7.0-18.7); Bilirubin, Total 0.6 mg/dL (0.2-1.2); Calc. Creatinine Clearance 0 mL/min (70-130); Calcium 9.4 mg/dL (7.8-10.44); Carbon Dioxide 28 mmol/L (22-29); Chloride 98 mmol/L (98-107); Estimated GFR 84; Globulin 4.2 g/dL (2.4-3.5); Glucose 347 mg/dL (70-105); Lipase 36 U/L (8-78); Potassium 3.9 mmol/L (3.5-5.1); Protein, Total 8.3 g/dL (6.0-8.3); Sodium 132 mmol/L (136-145)
[2022-04-19] MEDS ORDERED: Lidocaine Viscous Sol 2% 15 ml UD Cup ONE (23:24)
[2022-04-19] MEDS ORDERED: Mag-Al 1200 mg/1200 mg/30 ML UDCUP ONE (23:24)
[2022-04-19 23:32] LABS: Bilirubin Negative (Negative); Blood, Urine Negative (Negative); Clarity Clear (Clear); Glucose, Urine (Dipstick) Greater than 1000 mg/dL (Negative); Ketone, Urine Negative (Negative); Leukocyte Negative Leu/uL (Negative); Nitrite Negative (Negative); Pregnancy Test - Urine (BHCG) Negative (Negative); Pregu Control Background? CLEAR/WHITE (CLR/WHITE); Pregu Control Bar Appear? YES (CONTROL BAR); Protein, Urine (Dipstick) Negative (Neg-Trace); Specific Gravity 1.023 (1.002-1.036); Specific Gravity, Urine 1.023 (1.002-1.036); Urobilinogen Normal mg/dL (Less than 2)
== END 2022-04-19 23:55 | disposition home or self-care (01) ==
LOC: ERS 21:01
DX: K59.00 Constipation, unspecified (principal); K62.5 Hemorrhage of anus and rectum; I10 Essential (primary) hypertension; E11.9 Type 2 diabetes mellitus without complications; Z79.84 Long term (current) use of oral hypoglycemic drugs
CPT/HCPCS: 36415; 80053; 81003; 81025; 83690; 84484; 85025; 93005

== ENCOUNTER → 2022-04-20 | Day surgery (SDC) | payer MEDICARE, MEDICAID | END | disposition home or self-care (01) | LOC: BICULT 12:26 | PROVIDERS: ATTEND Nurse Practitioner Family | PROC: 0H9T3ZX Drainage of Right Breast, Percutaneous Approach, Diagnostic (ICD-10-PCS; principal; 2022-04-20) | DX: C50.811 Malignant neoplasm of overlapping sites of right female breast (principal); Z17.0 Estrogen receptor positive status [ER+]; Z53.9 Procedure and treatment not carried out, unspecified reason | CPT/HCPCS: 19083; 88305; 88341; 88342; 88361 ==

== ENCOUNTER 2022-10-12 07:44 | Day surgery (SDC) | payer MEDICARE, MEDICAID ==
[2022-10-09 09:23] VITALS: BMI 33.0
[2022-10-12] MEDS ORDERED: Ketorolac Tromethamine 30 MG/ML VIAL ONE ×2 (10:17→13:54)
[2022-10-12] MEDS ORDERED: Acetaminophen 500 MG TAB ONE (10:17)
[2022-10-12] MEDS ORDERED: Isosulfan Blue 50 MG/5 ML VIAL ONE (13:31)
[2022-10-12] MEDS ORDERED: Bupivacaine HCl 0.5%/Epinephrine 1:200,000/PF 30 ml Vial ONE (13:31)
[2022-10-12] MEDS ORDERED: Lidocaine 2% PF 5 ML VIAL ONE (13:31)
[2022-10-12] MEDS ORDERED: HYDROmorphone 0.5 MG/0.5 ML SYRINGE ONE (13:35)
[2022-10-12] MEDS ORDERED: fentaNYL PF 100 MCG/2 ML SYRINGE ONE (13:35)
[2022-10-12] MEDS ORDERED: CEFAZOLIN 2 GM VIAL ONE (13:48)
[2022-10-12] MEDS ORDERED: Sodium Chloride 0.9% 100 ML ONE (13:48)
[2022-10-12] MEDS ORDERED: Rocuronium Bromide 10 MG/ML (10ML VIAL) ONE (13:54)
[2022-10-12] MEDS ORDERED: Dexamethasone 20 MG/5 ML VIAL ONE (13:54)
[2022-10-12] MEDS ORDERED: NEOSTIGMINE 3 MG/3 ML SYR 3 MG/3 ML SYRINGE ONE (13:54)
[2022-10-12] MEDS ORDERED: Lidocaine 1% PF 5 ML VIAL ONE (13:54)
[2022-10-12] MEDS ORDERED: ePHEDrine Sulfate 50 MG/10 ML VIAL ONE (13:54)
[2022-10-12] MEDS ORDERED: Glycopyrrolate 0.2 MG/ML 5 ML SYRINGE ONE (13:54)
[2022-10-12] MEDS ORDERED: Succinylcholine 200 MG/10 ml SYRINGE FS ONE (13:54)
[2022-10-12] MEDS ORDERED: PROPOFOL 200 MG/20 ML VIAL ONE (13:54)
[2022-10-12] MEDS ORDERED: Ondansetron PF 4 MG/2 ML Vial ONE ×2 (13:54→16:13)
[2022-10-12] MEDS ORDERED: SUGAMMADEX SODIUM 200 MG/2 ML VIAL ONE (15:59)
[2022-10-12] MEDS ORDERED: hydrALAZINE 20 MG/ML VIAL ONE (16:13)
[2022-10-12] MEDS ORDERED: Promethazine HCl 25 MG/ML VIAL ONE (16:23)
[2022-10-12] MEDS ORDERED: Famotidine/PF 20 mg/2ml Vial ONE (16:32)
[2022-10-12] MEDS ORDERED: Scopolamine 1.5 mg/72 hour Patch ONE (16:32)
== END 2022-10-12 18:10 | disposition home or self-care (01) ==
LOC: SDC 07:44
PROVIDERS: ATTEND Specialist
PROC: 0HBT0ZZ Excision of Right Breast, Open Approach (ICD-10-PCS; principal; 2022-10-12)
DX: D05.11 Intraductal carcinoma in situ of right breast (principal); I10 Essential (primary) hypertension; G43.909 Migraine, unspecified, not intractable, without status migrainosus; F31.9 Bipolar disorder, unspecified; R73.03 Prediabetes; Z79.82 Long term (current) use of aspirin; Z79.84 Long term (current) use of oral hypoglycemic drugs; Z79.899 Other long term (current) drug therapy; C77.3 Secondary and unspecified malignant neoplasm of axilla and upper limb lymph nodes
CPT/HCPCS: 19301; 38525; 38900; 76098; 78195; 82962; A9541; C1713; J0360; Q9968; 36416; 88307; 88341; 88342; J1100; J1170; J1885; J2001; J2405; J2550; J2704; J3490; S0028

== ENCOUNTER 2023-01-23 06:11 | Inpatient (IN) | payer MEDICARE, MEDICAID ==
[2023-01-23] MEDS ORDERED: Nitroglycerin 0.4 MG TAB 1 EACH ONE (06:44)
[2023-01-23] MEDS ORDERED: Aspirin Chewable 81 MG TAB ONE (06:44)
[2023-01-23 06:46] LABS: #Eosinphils 0.2 thou/uL (0.0-0.7); #Monocytes 0.4 thou/uL (0.11-0.59); #Neutrophils 3.8 thou/uL (1.40-6.50); %Basophils 0.4 % (0.0-1.0); %Eosinophils 3.4 % (0.0-10.0); %Lymphocytes 19.5 % (21.0-51.0); %Monocytes 7.2 % (0.0-10.0); %Neutrophils 69.3 % (42.0-75.0); Hemoglobin 11.6 g/dL (12.0-16.0); Mean Corpuscular HGB CONC 31.4 g/dL (32.0-36.0); Mean Corpuscular Hemoglobin 22.8 pg (27.0-31.0); Mean Corpuscular Volume 72.8 fl (78.0-98.0); Mean Platelet Volume 10.1 fL (7.4-10.4); Platelet Count 247 10x3/uL (130-400); RBC Distribution Width 14.7 % (11.5-14.5); Red Blood Cell (RBC) Count 5.08 mill/uL (4.20-5.40); White Blood Cell (WBC) Count 5.5 10x3/uL (4.8-10.8)
[2023-01-23] MEDS ORDERED: Morphine 4 MG/ML VIAL ONE ×2 (06:51→10:46)
[2023-01-23 07:07] LABS: Troponin I Less than 0.010 ng/mL (< 0.028)
[2023-01-23] MEDS ORDERED: Ondansetron PF 4 MG/2 ML Vial ONE (07:26)
[2023-01-23] MEDS ORDERED: cefTRIAXone (ROCEPHIN) 2 GM VIAL ONE (07:26)
[2023-01-23 07:58] LABS: Albumin 4.1 g/dL (3.5-5.0)
[2023-01-23 08:00] LABS: Calcium 9.1 mg/dL (7.8-10.44); Chloride 104 mmol/L (98-107); Sodium 136 mmol/L (136-145)
[2023-01-23 08:01] LABS: Glucose 230 mg/dL (70-105); Protein, Total 8.1 g/dL (6.0-8.3)
[2023-01-23 08:02] LABS: Anion Gap 13 mmol/L (10-20); Carbon Dioxide 23 mmol/L (22-29)
[2023-01-23 08:03] LABS: Bilirubin, Total 0.3 mg/dL (0.2-1.2)
[2023-01-23 08:04] LABS: Alkaline Phosphatase 83 U/L (40-110); Calc. Creatinine Clearance 0 mL/min (70-130); Estimated GFR 99
[2023-01-23 08:05] LABS: BUN (Urea Nitrogen) 11 mg/dL (7.0-18.7)
[2023-01-23 08:06] LABS: AST (SGOT) 24 U/L (5-34)
[2023-01-23 08:07] LABS: ALT (SGPT) 20 U/L (8-55); Lipase 22 U/L (8-78)
[2023-01-23 08:52] LABS: BHCG - Serum Negative (NEGATIVE); Pregs Control Background? CLEAR/WHITE (CLR/WHITE); Pregs Control Bar Appear? YES (CONTROL BAR)
[2023-01-23] MEDS ORDERED: Iopamidol-370 76% 500 ML MDV (1 ML CHARGE) ONE (09:20)
[2023-01-23 10:09] LABS: Bilirubin Negative (Negative); Blood, Urine Negative (Negative); Glucose, Urine (Dipstick) 250 mg/dL (Negative); Ketone, Urine Negative (Negative); Leukocyte Negative (Negative); Nitrite Negative (Negative); Protein, Urine (Dipstick) Negative (Neg-Trace); pH, Urine 6.5 (5.0-9.0)
[2023-01-23 10:14] LABS: Clarity Clear (Clear)
[2023-01-23 10:20] LABS: Bacteria/HPF Rare-Few HPF (None Seen); CAUTI Indications for Culture Alt mental st,lethar; RBC/HPF None Seen HPF (0-3); WBC/HPF None Seen HPF (0-3)
[2023-01-23 10:22] LABS: Urine Culture Reflex No No
[2023-01-23 10:44] LABS: Troponin I Less than 0.010 ng/mL (< 0.028)
[2023-01-23] MEDS ORDERED: Metoprolol Tartrate 25 MG TAB ONE (10:46)
[2023-01-23] MEDS ORDERED: Losartan 25 MG TAB PO SCH (11:00)
[2023-01-23] MEDS ORDERED: HYDROcodone/Acetaminophen 5/325 mg Tablet ONE (11:07)
[2023-01-23] MEDS ORDERED: Docusate 100 MG CAP PO PRN (12:01)
[2023-01-23] MEDS ORDERED: Glucagon 1 MG/ML KIT IM PRN (12:03)
[2023-01-23] MEDS ORDERED: HumaLOG 300 UNITS/3 ML VIAL SC PRN (12:03)
[2023-01-23] MEDS ORDERED: Acetaminophen 325 MG TAB PO PRN (12:03)
[2023-01-23] MEDS ORDERED: Dextrose 5% in Water 1,000 ML IV PRN (12:03)
[2023-01-23] MEDS ORDERED: Ondansetron ODT 4 MG TAB PO PRN (12:03)
[2023-01-23] MEDS ORDERED: Nitroglycerin 0.4 MG TAB (25 Tab Bottle) SL PRN (12:03)
[2023-01-23] MEDS ORDERED: Dextrose 50% Abboject 50 ML SYRINGE SLOW IVP PRN (12:03)
[2023-01-23] MEDS ORDERED: Electrolyte Replacement Protocol FS SCH (12:15)
[2023-01-23 12:49] LABS: Magnesium 1.7 mg/dL (1.6-2.6)
[2023-01-23] MEDS: Ondansetron PF 4 MG/2 ML Vial IVP PRN (14:02)
[2023-01-23 14:25] VITALS: BMI 33.5
[2023-01-23] MEDS ORDERED: FLU VACC QS2023-24(6MOS UP)/PF 60 MCG/0.5 ML SYRINGE IM ONE (14:45)
[2023-01-23 15:07] LABS: Troponin I Less than 0.010 ng/mL (< 0.028)
[2023-01-23] MEDS: Magnesium 2 GM/50 ML(in water) 2 GM in Premix Bag 1 BAG IVPB SCH ×2 (16:06→16:53)
[2023-01-23] MEDS: Metoprolol Tartrate 25 MG TAB PO SCH (20:22)
[2023-01-23] MEDS ORDERED: diphenhydrAMINE 25 MG CAP PO PRN (23:13)
[2023-01-24 00:44] LABS: Troponin I Less than 0.010 ng/mL (< 0.028)
[2023-01-24 06:52] LABS: #Eosinphils 0.2 thou/uL (0.0-0.7); #Monocytes 0.3 thou/uL (0.11-0.59); #Neutrophils 2.1 thou/uL (1.40-6.50); %Basophils 0.8 % (0.0-1.0); %Eosinophils 4.8 % (0.0-10.0); %Lymphocytes 28.3 % (21.0-51.0); %Monocytes 9.1 % (0.0-10.0); %Neutrophils 56.7 % (42.0-75.0); Hematocrit 37.7 % (36.0-47.0); Hemoglobin 11.9 g/dL (12.0-16.0); Mean Corpuscular HGB CONC 31.6 g/dL (32.0-36.0); Mean Corpuscular Hemoglobin 22.9 pg (27.0-31.0); Mean Corpuscular Volume 72.5 fl (78.0-98.0); Platelet Count 229 10x3/uL (130-400); RBC Distribution Width 14.6 % (11.5-14.5); White Blood Cell (WBC) Count 3.7 10x3/uL (4.8-10.8)
[2023-01-24 07:58] LABS: CellaVision Operator ID LAB.GE; Microcytosis SLIGHT = 6-15 cells HPF (0-5); Platelet Adequacy Comment Platelets Normal; Polychromasia SLIGHT = 2-3 cells HPF (0-2)
[2023-01-24] MEDS ORDERED: Ibuprofen 800 MG TAB PO PRN (08:55)
[2023-01-24 08:56] LABS: Anion Gap 10 mmol/L (10-20); BUN (Urea Nitrogen) 13 mg/dL (7.0-18.7); Calc. Creatinine Clearance 144 mL/min (70-130); Calcium 8.9 mg/dL (7.8-10.44); Carbon Dioxide 27 mmol/L (22-29); Chloride 103 mmol/L (98-107); Estimated GFR 99; Glucose 179 mg/dL (70-105); Magnesium 1.7 mg/dL (1.6-2.6); Potassium 3.8 mmol/L (3.5-5.1); Sodium 136 mmol/L (136-145)
[2023-01-24] MEDS: Metoprolol Tartrate 25 MG TAB PO SCH ×2 (10:15→20:47)
[2023-01-24] MEDS: Losartan 25 MG TAB PO SCH (10:16)
[2023-01-24] MEDS: Atorvastatin Calcium 40 MG TAB PO SCH (10:16)
[2023-01-24] MEDS: Aspirin Chewable 81 MG TAB PO SCH (10:16)
[2023-01-24] MEDS ORDERED: Magnesium 2 GM/50 ML(in water) 2 GM in Premix Bag 1 BAG IVPB SCH (11:00)
[2023-01-24] MEDS: diphenhydrAMINE 30 GM TUBE TOP PRN ×2 (14:56→16:45)
[2023-01-24] MEDS: traMADol HCl 50 MG TAB PO PRN (20:47)
[2023-01-24] MEDS: Linezolid 600 MG TAB PO SCH (20:47)
[2023-01-24] MEDS ORDERED: Linezolid 600 MG in Premix Bag 1 BAG IVPB SCH (21:00)
[2023-01-25 04:44] LABS: #Eosinphils 0.2 thou/uL (0.0-0.7); #Monocytes 0.4 thou/uL (0.11-0.59); #Neutrophils 2.2 thou/uL (1.40-6.50); %Basophils 0.5 % (0.0-1.0); %Eosinophils 4.6 % (0.0-10.0); %Lymphocytes 30.2 % (21.0-51.0); %Monocytes 9.4 % (0.0-10.0); %Neutrophils 55.3 % (42.0-75.0); Hematocrit 37.2 % (36.0-47.0); Hemoglobin 11.5 g/dL (12.0-16.0); Mean Corpuscular HGB CONC 30.9 g/dL (32.0-36.0); Mean Corpuscular Hemoglobin 22.6 pg (27.0-31.0); Mean Corpuscular Volume 73.2 fl (78.0-98.0); Mean Platelet Volume 9.7 fL (7.4-10.4); Platelet Count 219 10x3/uL (130-400); RBC Distribution Width 14.6 % (11.5-14.5); Red Blood Cell (RBC) Count 5.08 mill/uL (4.20-5.40); White Blood Cell (WBC) Count 3.9 10x3/uL (4.8-10.8)
[2023-01-25 05:20] LABS: ALT (SGPT) 22 U/L (8-55); AST (SGOT) 18 U/L (5-34); Albumin 3.8 g/dL (3.5-5.0); Alkaline Phosphatase 81 U/L (40-110); Anion Gap 11 mmol/L (10-20); BUN (Urea Nitrogen) 14 mg/dL (7.0-18.7); Bilirubin, Total 0.3 mg/dL (0.2-1.2); Calc. Creatinine Clearance 144 mL/min (70-130); Calcium 8.9 mg/dL (7.8-10.44); Carbon Dioxide 28 mmol/L (22-29); Chloride 101 mmol/L (98-107); Estimated GFR 99; Globulin 3.8 g/dL (2.4-3.5); Glucose 189 mg/dL (70-105); Potassium 3.5 mmol/L (3.5-5.1); Protein, Total 7.6 g/dL (6.0-8.3); Sodium 136 mmol/L (136-145)
[2023-01-25] MEDS: HYDROcodone/Acetaminophen 5/325 mg Tablet PO PRN ×2 (05:51→12:34)
[2023-01-25] MEDS ORDERED: Potassium Chloride 20 MEQ TAB PO SCH (08:00)
[2023-01-25] MEDS: Linezolid 600 MG TAB PO SCH ×2 (08:11→19:46)
[2023-01-25] MEDS: Atorvastatin Calcium 40 MG TAB PO SCH (08:11)
[2023-01-25] MEDS: Aspirin Chewable 81 MG TAB PO SCH (08:11)
[2023-01-25] MEDS: Metoprolol Tartrate 25 MG TAB PO SCH ×2 (08:11→19:47)
[2023-01-25] MEDS: Losartan 25 MG TAB PO SCH (08:11)
[2023-01-25] MEDS: HumaLOG 300 UNITS/3 ML VIAL SC PRN ×2 (11:39→17:23)
[2023-01-25] MEDS ORDERED: Lidocaine 1% PF 5 ML VIAL ONE (13:06)
[2023-01-25] MEDS ORDERED: Sodium Bicarbonate 2.5 MEQ/5 ML VIAL ONE (13:06)
[2023-01-25 13:11] LABS: Potassium 3.8 mmol/L (3.5-5.1)
[2023-01-25 14:53] LABS: BF Color Brown; Body Fluid Source Abscess Fluid; Clarity Cloudy/Turbid (Clear); Tube # EDTA
[2023-01-25] MEDS: metroNIDAZOLE 500 MG TAB PO SCH ×2 (15:31→19:47)
[2023-01-25] MEDS ORDERED: diphenhydrAMINE 25 MG CAP PO PRN (16:23)
[2023-01-25] MEDS: diphenhydrAMINE 30 GM TUBE TOP PRN (17:22)
[2023-01-25] MEDS: Lidocaine 4% Patch TD SCH (18:18)
[2023-01-25] MEDS: traMADol HCl 50 MG TAB PO PRN (19:47)
[2023-01-25] MEDS: Ondansetron PF 4 MG/2 ML Vial IVP PRN (19:56)
[2023-01-26 07:20] VITALS: BP 140/88; TEMP 98.5
[2023-01-26] MEDS ORDERED: Insulin Glargine 30 UNITS/0.3 ML VIAL SC SCH (08:00)
[2023-01-26] MEDS: Linezolid 600 MG TAB PO SCH (08:27)
[2023-01-26] MEDS: Metoprolol Tartrate 25 MG TAB PO SCH (08:28)
[2023-01-26] MEDS: Losartan 25 MG TAB PO SCH (08:28)
[2023-01-26] MEDS: Atorvastatin Calcium 40 MG TAB PO SCH (08:28)
[2023-01-26] MEDS: Aspirin Chewable 81 MG TAB PO SCH (08:28)
[2023-01-26] MEDS: metroNIDAZOLE 500 MG TAB PO SCH (08:28)
[2023-01-26] MEDS: Lidocaine 4% Patch TD SCH (08:29)
[2023-01-26] MEDS ORDERED: Transdermal Patch Removal TOP SCH (21:00)
== END 2023-01-26 12:54 | disposition home or self-care (01) | DRG 601 ==
LOC: ERS 06:11 → 2SW 11:33 → OBSVTOIN 01-25 08:04
PROVIDERS: ADMIT Internal Medicine; ATTEND Family Medicine
PROC: 0H9T3ZX Drainage of Right Breast, Percutaneous Approach, Diagnostic (ICD-10-PCS; principal; 2023-01-25)
DX: N61.1 Abscess of the breast and nipple (principal); I10 Essential (primary) hypertension; E11.9 Type 2 diabetes mellitus without complications; I25.10 Atherosclerotic heart disease of native coronary artery without angina pectoris; D64.9 Anemia, unspecified; F31.9 Bipolar disorder, unspecified; C50.911 Malignant neoplasm of unspecified site of right female breast; E66.01 Morbid (severe) obesity due to excess calories; D72.819 Decreased white blood cell count, unspecified; Z95.5 Presence of coronary angioplasty implant and graft; Z98.890 Other specified postprocedural states; Z79.82 Long term (current) use of aspirin; Z79.899 Other long term (current) drug therapy; Z88.6 Allergy status to analgesic agent; Z79.4 Long term (current) use of insulin; Z79.84 Long term (current) use of oral hypoglycemic drugs; Z82.49 Family history of ischemic heart disease and other diseases of the circulatory system; Z68.33 Body mass index [BMI] 33.0-33.9, adult
CPT/HCPCS: 36415; 36416; 71045; 71275; 76942; 80048; 80053; 81001; 83690; 83735; 84145; 84484; 84703; 85025; 85060; 85379; 87070; 87205; 88112; 88305; 89051; 93005; 94760; 96365; 96372; 96375; 96376; G0378; J0696; J1650; J1815; J2270; J2405; J3475; Q9967

== ENCOUNTER 2023-08-14 20:43 | Inpatient (IN) | payer MEDICARE, MEDICAID ==
[~2023-08-14 20:43] MED LIST: Iopamidol-370 76% 500 ML MDV (1 ML CHARGE) ONE
[2023-08-14 21:54] LABS: Globulin 4.5 g/dL (2.4-3.5)
[2023-08-14 21:57] LABS: #Basophils Less than 0.03 10x3/uL (0.0-0.2); %Basophils 0.2 % (0.0-1.0); %Eosinophils 2.4 % (0.0-10.0); %Lymphocytes 33.8 % (21.0-51.0); %Monocytes 6.4 % (0.0-10.0); Hematocrit 37.3 % (36.0-47.0); Hemoglobin 11.8 g/dL (12.0-16.0); Mean Corpuscular HGB CONC 31.6 g/dL (32.0-36.0); Mean Corpuscular Hemoglobin 22.4 pg (27.0-31.0); Mean Corpuscular Volume 70.8 fL (78.0-98.0); Mean Platelet Volume 10.3 fL (7.4-10.4); Platelet Count 250 10x3/uL (130-400); RBC Distribution Width 13.5 % (11.5-14.5); Red Blood Cell (RBC) Count 5.27 mill/uL (4.20-5.40)
[2023-08-14 22:02] LABS: Troponin I Less than 0.010 ng/mL (< 0.028)
[2023-08-14 22:28] LABS: Hypochromia SLIGHT = 6-15 cells HPF (0-5); Microcytosis SLIGHT = 6-15 cells HPF (0-5); PTT 27.2 sec (22.9-36.1); Platelet Adequacy Comment Platelets Normal; Polychromasia SLIGHT = 2-3 cells HPF (0-2); Prothrombin Time 13.4 sec (12.0-14.7)
[2023-08-14 22:35] LABS: Bacteria/HPF None Seen HPF (None Seen); Bilirubin Negative (Negative); Blood, Urine 2+ (Negative); CAUTI Indications for Culture Acute Hematuria; Clarity Clear (Clear); Glucose, Urine (Dipstick) Greater than 1000 mg/dL (Negative); Ketone, Urine Negative (Negative); Leukocyte Negative Leu/uL (Negative); Nitrite Negative (Negative); Protein, Urine (Dipstick) Negative (Neg-Trace); RBC/HPF Greater than 50 HPF (0-3); Squamous Epithelial 0-3 HPF (0-3); Urobilinogen Normal mg/dL (Less than 2); WBC/HPF None Seen HPF (0-3); pH, Urine 6.5 (5.0-9.0)
[2023-08-14] MEDS ORDERED: Aspirin Chewable 81 MG TAB ONE (22:36)
[2023-08-14 22:38] LABS: Specific Gravity, Urine 1.049 (1.002-1.036)
[2023-08-14 22:39] LABS: Urine Culture Reflex No No
[2023-08-14 22:46] LABS: ALT (SGPT) 29 U/L (8-55); AST (SGOT) 19 U/L (5-34); Albumin 3.1 g/dL (3.5-5.0); Alkaline Phosphatase 112 U/L (40-110); Anion Gap 12 mmol/L (10-20); BUN (Urea Nitrogen) 11 mg/dL (7.0-18.7); Bilirubin, Total 0.5 mg/dL (0.2-1.2); Calc. Creatinine Clearance 0 mL/min (70-130); Carbon Dioxide 24 mmol/L (22-29); Chloride 97 mmol/L (98-107); Estimated GFR 68; Glucose 535 mg/dL (70-105); Lipase 27 U/L (8-78); Magnesium 1.6 mg/dL (1.6-2.6); Potassium 3.4 mmol/L (3.5-5.1); Protein, Total 7.6 g/dL (6.0-8.3); Sodium 130 mmol/L (136-145)
[2023-08-14] MEDS ORDERED: Dextrose 50% Abboject 50 ML SYRINGE SLOW IVP PRN (22:57)
[2023-08-14] MEDS ORDERED: Ondansetron ODT 4 MG TAB PO PRN (22:57)
[2023-08-14] MEDS ORDERED: Dextrose 5% in Water 1,000 ML IV PRN (22:57)
[2023-08-14] MEDS ORDERED: Glucagon 1 MG/ML KIT IM PRN (22:57)
[2023-08-14] MEDS ORDERED: hydrALAZINE 20 MG/ML VIAL SLOW IVP PRN (22:57)
[2023-08-14] MEDS ORDERED: Ondansetron PF 4 MG/2 ML Vial IVP PRN (22:57)
[2023-08-14 23:37] LABS: Magnesium 1.6 mg/dL (1.6-2.6)
[2023-08-14] MEDS ORDERED: Potassium Chloride 20 MEQ TAB ONE (23:56)
[2023-08-14] MEDS ORDERED: Magnesium 2 GM/50 ML BAG (IN WATER) ONE (23:57)
[2023-08-15] MEDS: Magnesium 2 GM/50 ML(in water) 2 GM in Premix 1 BAG IVPB SCH (00:03)
[2023-08-15] MEDS: Potassium Chloride 20 MEQ TAB PO SCH (00:03)
[2023-08-15] MEDS ORDERED: HumaLOG 300 UNITS/3 ML VIAL ONE ×2 (00:59→01:01)
[2023-08-15] MEDS: HumaLOG 300 UNITS/3 ML VIAL SC PRN ×2 (01:03→06:22)
[2023-08-15 05:24] LABS: #Basophils Less than 0.03 10x3/uL (0.0-0.2); %Basophils 0.4 % (0.0-1.0); %Eosinophils 4.2 % (0.0-10.0); %Monocytes 6.2 % (0.0-10.0); Hematocrit 37.5 % (36.0-47.0); Hemoglobin 11.8 g/dL (12.0-16.0); Mean Corpuscular HGB CONC 31.5 g/dL (32.0-36.0); Mean Corpuscular Hemoglobin 22.4 pg (27.0-31.0); Mean Corpuscular Volume 71.3 fL (78.0-98.0); Mean Platelet Volume 10.1 fL (7.4-10.4); Platelet Count 223 10x3/uL (130-400); RBC Distribution Width 13.5 % (11.5-14.5); Red Blood Cell (RBC) Count 5.26 mill/uL (4.20-5.40)
[2023-08-15 05:30] LABS: Troponin I Less than 0.010 ng/mL (< 0.028)
[2023-08-15 05:34] LABS: Anion Gap 11 mmol/L (10-20); BUN (Urea Nitrogen) 13 mg/dL (7.0-18.7); Calc. Creatinine Clearance 0 mL/min (70-130); Calcium 9.2 mg/dL (7.8-10.44); Carbon Dioxide 24 mmol/L (22-29); Cardiac Risk 5.6 (Less than 4.5); Chloride 101 mmol/L (98-107); Cholesterol 162 mg/dl (< 200 Desired); Estimated GFR 90; Glucose 367 mg/dL (70-105); HDL Cholesterol 29 mg/dL (>60 Neg Risk); Iron 92 ug/dL (50-170); Iron Binding Capacity, Total 288 mcg/dL (265-497); LDL Cholesterol, Calculated 102 mg/dL; Potassium 3.8 mmol/L (3.5-5.1); Sodium 132 mmol/L (136-145); Triglycerides 153 mg/dL (Less than 150)
[2023-08-15 05:53] LABS: Ferritin 44.77 ng/mL (10-291); Microcytosis SLIGHT = 6-15 cells HPF (0-5); Platelet Adequacy Comment Platelets Normal; Thyroid Stimulating Hormone 2.032 uIU/mL (0.35-4.94)
[2023-08-15 06:18] LABS: Hemoglobin A1c Greater than 14.0 % (4.0-6.0)
[2023-08-15] MEDS ORDERED: Metoprolol Tartrate 25 MG TAB ONE ×2 (10:05→10:18)
[2023-08-15] MEDS ORDERED: Clopidogrel Bisulfate 75 MG TAB ONE (10:05)
[2023-08-15] MEDS ORDERED: Aspirin Chewable 81 MG TAB ONE (10:05)
[2023-08-15] MEDS: Insulin Glargine 30 UNITS/0.3 ML VIAL SC SCH (10:11)
[2023-08-15] MEDS: Clopidogrel Bisulfate 75 MG TAB PO SCH (10:11)
[2023-08-15] MEDS: Metoprolol Tartrate 25 MG TAB PO SCH (10:11)
[2023-08-15] MEDS ORDERED: Aspirin 81 mg Enteric Coated Tablet ONE (10:13)
[2023-08-15] MEDS ORDERED: Acetaminophen 325 MG TAB ONE (10:14)
[2023-08-15] MEDS: Acetaminophen 325 MG TAB PO PRN (10:15)
[2023-08-15] MEDS: Aspirin 81 mg Enteric Coated Tablet PO SCH (10:15)
[2023-08-15] MEDS ORDERED: LORazepam 2 MG/ML SYR.(CARPUJECT) ONE (16:29)
[2023-08-15] MEDS: LORazepam 2 MG/ML SYR.(CARPUJECT) IVP SCH (17:04)
[2023-08-15 17:52] VITALS: BMI 34.2
[2023-08-15] MEDS: Atorvastatin Calcium 40 MG TAB PO SCH (21:23)
[2023-08-16 04:59] LABS: #Basophils Less than 0.03 10x3/uL (0.0-0.2); %Basophils 0.2 % (0.0-1.0); %Eosinophils 3.2 % (0.0-10.0); %Lymphocytes 29.2 % (21.0-51.0); %Monocytes 4.5 % (0.0-10.0); %Neutrophils 62.7 % (42.0-75.0); Hemoglobin 12.2 g/dL (12.0-16.0); Mean Corpuscular HGB CONC 31.3 g/dL (32.0-36.0); Mean Corpuscular Hemoglobin 22.9 pg (27.0-31.0); Mean Corpuscular Volume 73.2 fL (78.0-98.0); Mean Platelet Volume 10.2 fL (7.4-10.4); Platelet Count 236 10x3/uL (130-400); RBC Distribution Width 13.7 % (11.5-14.5); Red Blood Cell (RBC) Count 5.33 mill/uL (4.20-5.40)
[2023-08-16 05:21] LABS: Anion Gap 12 mmol/L (10-20); BUN (Urea Nitrogen) 15 mg/dL (7.0-18.7); Calc. Creatinine Clearance 124 mL/min (70-130); Carbon Dioxide 22 mmol/L (22-29); Chloride 105 mmol/L (98-107); Estimated GFR 82; Glucose 443 mg/dL (70-105); Potassium 3.9 mmol/L (3.5-5.1); Sodium 135 mmol/L (136-145)
[2023-08-16 05:55] LABS: Microcytosis SLIGHT = 6-15 cells HPF (0-5); Platelet Adequacy Comment Platelets Normal
[2023-08-16] MEDS: glipiZIDE 5 MG TAB PO SCH (08:40)
[2023-08-16] MEDS: Insulin Glargine 30 UNITS/0.3 ML VIAL SC SCH (08:40)
[2023-08-16 12:26] VITALS: BMI 34.2
[2023-08-17 04:40] LABS: #Basophils Less than 0.03 10x3/uL (0.0-0.2); %Basophils 0.3 % (0.0-1.0); %Eosinophils 3.1 % (0.0-10.0); %Lymphocytes 30.1 % (21.0-51.0); %Monocytes 6.6 % (0.0-10.0); %Neutrophils 59.8 % (42.0-75.0); Hematocrit 39.5 % (36.0-47.0); Hemoglobin 12.3 g/dL (12.0-16.0); Mean Corpuscular HGB CONC 31.1 g/dL (32.0-36.0); Mean Corpuscular Hemoglobin 22.9 pg (27.0-31.0); Mean Corpuscular Volume 73.4 fL (78.0-98.0); Mean Platelet Volume 9.9 fL (7.4-10.4); Platelet Count 233 10x3/uL (130-400); RBC Distribution Width 13.8 % (11.5-14.5); Red Blood Cell (RBC) Count 5.38 mill/uL (4.20-5.40)
[2023-08-17 04:48] LABS: Anion Gap 14 mmol/L (10-20); BUN (Urea Nitrogen) 17 mg/dL (7.0-18.7); Calc. Creatinine Clearance 162 mL/min (70-130); Calcium 8.9 mg/dL (7.8-10.44); Carbon Dioxide 21 mmol/L (22-29); Chloride 106 mmol/L (98-107); Estimated GFR 108; Glucose 211 mg/dL (70-105); Potassium 3.6 mmol/L (3.5-5.1); Sodium 137 mmol/L (136-145)
[2023-08-17 11:38] VITALS: TEMP 98
[2023-08-17 12:30] VITALS: BP 143/93
== END 2023-08-17 13:00 | disposition home or self-care (01) | DRG 68 ==
LOC: ERS 20:43 → ERHOLD 22:54 → 2SE 08-15 17:36
PROVIDERS: ADMIT Internal Medicine; ATTEND Internal Medicine
DX: I66.01 Occlusion and stenosis of right middle cerebral artery (principal); E87.1 Hypo-osmolality and hyponatremia; E11.65 Type 2 diabetes mellitus with hyperglycemia; E87.6 Hypokalemia; D50.9 Iron deficiency anemia, unspecified; I25.10 Atherosclerotic heart disease of native coronary artery without angina pectoris; I10 Essential (primary) hypertension; Z79.4 Long term (current) use of insulin; Z88.8 Allergy status to other drugs, medicaments and biological substances; Z79.899 Other long term (current) drug therapy; Z98.890 Other specified postprocedural states; Z82.49 Family history of ischemic heart disease and other diseases of the circulatory system
CPT/HCPCS: 36415; 36416; 70450; 70496; 70498; 70551; 71045; 80048; 80053; 80061; 81001; 82010; 82728; 83036; 83540; 83550; 83690; 83735; 84443; 84484; 85025; 85610; 85730; 93005; 93306; J1815; J2060; J3475; Q9967

== ENCOUNTER 2023-10-03 15:23 | Emergency (ER) | payer MEDICARE, MEDICAID | END 2023-10-03 21:03 | disposition home or self-care (01) | LOC: ERS 15:23 → EEVIPCON 15:23 → ERS 21:03 | DX: R45.851 Suicidal ideations (principal); E11.9 Type 2 diabetes mellitus without complications; I10 Essential (primary) hypertension | CPT/HCPCS: 80306; 80307; 81001; 81025; 82962; 93005; 99285; J1815; 36416; 80053; 84443; 85025 ==

== ENCOUNTER 2023-10-22 22:19 | Emergency (ER) | payer MEDICARE, MEDICAID ==
[2023-10-23 00:08] LABS: Bacteria/HPF None Seen HPF (None Seen); Bilirubin Negative (Negative); Blood, Urine 1+ (Negative); CAUTI Indications for Culture Dysuria,urgency,freq; Clarity Clear (Clear); Glucose, Urine (Dipstick) Greater than 1000 mg/dL (Negative); Ketone, Urine Negative (Negative); Leukocyte 25 Leu/uL (Negative); Nitrite Negative (Negative); Protein, Urine (Dipstick) Negative (Neg-Trace); Specific Gravity, Urine 1.036 (1.002-1.036); Urobilinogen Normal mg/dL (Less than 2); pH, Urine 6.5 (5.0-9.0)
[2023-10-23 00:18] LABS: Trichomonas/HPF 1+ HPF (None Seen)
[2023-10-23 00:19] LABS: Urine Culture Reflex No No
[2023-10-23 01:43] LABS: Pregnancy Test - Urine (BHCG) Negative (Negative); Pregu Control Background? CLEAR/WHITE (CLR/WHITE); Pregu Control Bar Appear? YES (CONTROL BAR); Specific Gravity 1.036 (1.002-1.036)
[2023-10-23 14:28] LABS: Chlamydia by PCR, Vaginal Swab Not Detected (NotDetected); GC by PCR, Vaginal Swab Not Detected (NotDetected)
== END 2023-10-23 02:49 | disposition home or self-care (01) ==
LOC: ERS 22:19
DX: B37.31 Acute candidiasis of vulva and vagina (principal); I10 Essential (primary) hypertension; E11.9 Type 2 diabetes mellitus without complications; A59.00 Urogenital trichomoniasis, unspecified; L29.2 Pruritus vulvae; Z55.6 Problems related to health literacy
CPT/HCPCS: 81001; 81025; 87480; 87491; 87510; 87591; 87660; 99283

== ENCOUNTER 2024-03-15 16:36 | Emergency (ER) | payer MEDICARE, MEDICAID ==
[2024-03-15 17:10] LABS: Base Excess -1.3 mEq/L (-2.0 to +3.0); Calcium, Ionized (venous) 1.11 mmol/L (1.16-1.32); Chloride (VBG) 98 mmol/L (98-106); Hematocrit-VBG 39 % (36.0-47.0); Hemoglobin (Hb) 13.4 g/dL (11.7-16.0); Potassium (VBG) 3.92 mmol/L (3.70-5.30); Sodium 137 mmol/L (133-146); pH (venous) 7.334 (7.32-7.43)
[2024-03-15] MEDS ORDERED: hydrALAZINE 20 MG/ML VIAL ONE (17:44)
[2024-03-15] MEDS ORDERED: Ketorolac Tromethamine 30 MG (1 mL) VIAL ONE (17:45)
[2024-03-15 17:54] LABS: ALT (SGPT) 32 U/L (8-55); AST (SGOT) 28 U/L (5-34); Albumin 3.4 g/dL (3.5-5.0); Alkaline Phosphatase 98 U/L (40-110); Anion Gap 15 mmol/L (10-20); BUN (Urea Nitrogen) 12 mg/dL (7.0-18.7); Bilirubin, Total 0.7 mg/dL (0.2-1.2); Calc. Creatinine Clearance 0 mL/min (70-130); Calcium 8.9 mg/dL (7.8-10.44); Carbon Dioxide 22 mmol/L (22-29); Chloride 100 mmol/L (98-107); Critical Call Chemistry NUR.CO3; Estimated GFR 75; Glucose 450 mg/dL (70-105); Lipase 25 U/L (8-78); Potassium 4.4 mmol/L (3.5-5.1); Protein, Total 8.4 g/dL (6.0-8.3); Sodium 133 mmol/L (136-145)
[2024-03-15 18:03] LABS: #Basophils 0.03 10x3/uL (0.0-0.2); %Basophils 0.4 % (0.0-1.0); %Eosinophils 2.5 % (0.0-10.0); %Lymphocytes 27.6 % (21.0-51.0); %Monocytes 5.2 % (0.0-10.0); %Neutrophils 63.9 % (42.0-75.0); Hematocrit 38.6 % (36.0-47.0); Hemoglobin 12.2 g/dL (12.0-16.0); Mean Corpuscular HGB CONC 31.6 g/dL (32.0-36.0); Mean Corpuscular Hemoglobin 22.8 pg (27.0-31.0); Mean Corpuscular Volume 72.1 fL (78.0-98.0); Platelet Count 217 10x3/uL (130-400); RBC Distribution Width 14.1 % (11.5-14.5); Red Blood Cell (RBC) Count 5.35 mill/uL (4.20-5.40)
[2024-03-15] MEDS ORDERED: cloNIDine 0.1 MG TAB ONE (18:03)
[2024-03-15] MEDS ORDERED: Insulin Regular, Human 100 UNIT/ML 10 ML VIAL ONE (18:03)
[2024-03-15] MEDS ORDERED: Ibuprofen 800 MG TAB ONE (18:03)
[2024-03-15 18:05] LABS: Microcytosis SLIGHT = 6-15 cells HPF (0-5); Ovalocytes SLIGHT = 2-5 cells HPF (0-1); Platelet Adequacy Comment Platelets Normal; Polychromasia SLIGHT = 2-3 cells HPF (0-2)
[2024-03-15 18:23] LABS: pH, Urine 6.5 (5.0-9.0)
[2024-03-15 18:27] LABS: Bilirubin Unable to Interpret (Negative); Blood, Urine Unable to Interpret (Negative); Clarity Hazy (Clear); Glucose, Urine (Dipstick) Unable to Interpret mg/dL (Negative); Ketone, Urine Unable to Interpret mg/dL (Negative); Leukocyte Unable to Interpret (Negative); Nitrite Unable to Interpret (Negative); Protein, Urine (Dipstick) Unable to Interpret mg/dL (Neg-Trace); Urobilinogen UNABLE TO INTERPRET mg/dL (Less than 2)
[2024-03-15 18:28] LABS: Bacteria/HPF 1+ HPF (None Seen); CAUTI Indications for Culture Dysuria,urgency,freq; RBC/HPF Greater than 50 HPF (0-3)
[2024-03-15 18:29] LABS: Urine Culture Reflex No No
[2024-03-15] MEDS ORDERED: Tranexamic Acid 650 MG TAB PO SCH (18:45)
== END 2024-03-15 19:51 | disposition home or self-care (01) ==
LOC: ERS 16:36
DX: N92.0 Excessive and frequent menstruation with regular cycle (principal); E11.9 Type 2 diabetes mellitus without complications; I10 Essential (primary) hypertension; Z55.6 Problems related to health literacy
CPT/HCPCS: 71045; 76830; 76856; 80053; 81001; 82805; 82962; 83690; 85025; J1815; 36415; 36416; J0360; J1885